=== PATIENT | female | born 1990 | race Caucasian/White ===

== ENCOUNTER 2017-11-21 14:09 | Outpatient (REF) | payer OTHER, SELFPAY ==
[2017-11-21 21:09] LABS: HCG Quant, Pregnancy 8502 mIU/mL (1-3)
== END 2017-11-21 14:29 ==
LOC: NCHCN 14:09
PROVIDERS: Visit Provider Specialist/Technologist Athletic Trainer
DX: Z31.89 Encounter for other procreative management
CPT/HCPCS: 84702

== ENCOUNTER 2017-12-26 16:04 | Outpatient (CLI) | payer OTHER, MEDICAID, SELFPAY ==
[2017-12-26 16:54] LABS: Abs Immature Grans 0.02 k/cumm (0.0-0.09); Absolute Basophil Count 0.01 k/cumm (0.0-0.2); Absolute Eosinophil Count 0.12 k/cumm (0.0-0.7); Absolute Lymphocyte Count 2.54 k/cumm (1.2-3.4); Absolute Monocyte Count 0.58 k/cumm (0.11-0.7); Absolute Neutrophil Count 7.59 k/cumm (1.2-6.7); Basophils % 0.1; Eosinophils % 1.1; HCT 37.4 % (36.0-46.0); HGB 12.6 g/dL (12.0-15.5); Immature Grans % 0.2; Lymphocytes % 23.4; Mean Corp. HGB Concentration 33.7 g/dL (32.0-36.0); Mean Corpuscular Hemoglobin 28.8 pg (27.0-33.0); Mean Corpuscular Volume 85.4 fL (80-95); Mean Platelet Volume 10.4 fL (8.0-11.0); Monocytes % 5.3; Neutrophils % 69.9; Platelet Count 244 x1000/uL (130-400); RBC 4.38 m/cumm (4.00-5.20); RBC Distribution Width 13.9 % (11.7-14.6); White Blood Cell Count 10.86 k/cumm (4.4-10.8)
[2017-12-26 17:46] LABS: TSH (W/Ref FT4) 1.21 uIU/mL (0.358-3.74)
[2017-12-26 19:25] LABS: *AMPHETAMINES SCREEN URINE Negative (Negative); *BARBITURATES SCREEN URINE Negative (Negative); *BENZODIAZEPINES SCREEN URINE Negative (Negative); Cannabinoids THC Negative (Negative); Cocaine Screen,Urine Negative (Negative); METHADONE URINE SCREEN Negative (Negative); OPIATES URINE SCREEN Negative (Negative)
[2017-12-26 19:49] LABS: Tricyclic Antidepressants Negative (Negative)
[2017-12-28 09:41] LABS: Hepatitis B Surface Ag Negative (NEGAT)
[2017-12-28 10:44] LABS: Hepatitis C Ab w Rflx HCV PCR Negative (NEGAT)
[2017-12-28 10:49] LABS: HIV-1/2 Ag & Ab Screen Negative (NEGAT)
[2017-12-28 11:56] LABS: Syphilis Serology (RPR) Negative (Negative)
[2017-12-28 12:03] LABS: Varicella IgG Antibody Positive
[2017-12-28 12:36] LABS: Rubella IgG Ab (UVM) Positive
[2017-12-28 14:13] LABS: Chlamydia Result Negative; GC Result Negative; Specimen Description CERVIX
== END 2017-12-26 16:24 ==
PROVIDERS: PCP Specialist/Technologist Athletic Trainer; Visit Provider Advanced Practice Midwife
DX: Z34.91 Encounter for supervision of normal pregnancy, unspecified, first trimester (principal); Z11.3 Encounter for screening for infections with a predominantly sexual mode of transmission; Z11.59 Encounter for screening for other viral diseases; Z01.84 Encounter for antibody response examination; Z11.4 Encounter for screening for human immunodeficiency virus [HIV]
CPT/HCPCS: 36415; 80055; 80307; 86787; 86803; 86850; 86900; 86901; 87077; 87340; 87389; 87491; 87591; 84443; 86592; 86762; 87086

== ENCOUNTER 2017-12-26 17:57 | Outpatient (REF) | payer OTHER, SELFPAY ==
--- NOTE | 2017-12-26 15:45 | PAPFT_PTH ---
PATIENT: Lauren Buenrostro LOC: [facility] U#:[id number] AGE/SX: 27/F ROOM: RE12/26/[address]: Jean-Pierre Jesus RN : 1990 BED: DIS: 12/26/2017 SPEC #: [id number] RECD: 12/26/17 18:03 STATUS: GIULIA RETabitha #: [id number] ALONSO: 12/26/17 15:[address]: Jean-Pierre Jesus DEPT: [facility] Cytology RECD BY: Shelley Sorenson ENTERED: 12/26/17 18:03 SP TYPE: PAPFT OTHR DR: Maco Santoro Tissues: 1 - CX/ENDOCX FOR PAP SMEARS Procedures: PAP THIN PREP/UVM Screening Comments: [id number]
== END 2017-12-26 18:17 ==
LOC: LBN 17:57
PROVIDERS: PCP Specialist/Technologist Athletic Trainer; Visit Provider Advanced Practice Midwife
DX: Z12.4 Encounter for screening for malignant neoplasm of cervix (principal)
CPT/HCPCS: 88142

== ENCOUNTER 2018-02-27 00:27 | Outpatient (CLI) | payer OTHER, SELFPAY ==
--- NOTE | 2018-02-27 14:18 | DI.US_ITS ---
SYMPTOM/DIAGNOSIS: 18 WEEK ANATOMY SURVEY, Z34.90 OB ULTRASOUND: Please see the ultrasound worksheet. Many abnormalities cannot be diagnosed. A normal exam does not exclude a congenital anomaly. Radiology No. [id number] LMP: Exam Date: 02/27/18 [facility] wks days on EDC ([facility]) 07/24/2018 Confirmed: HISTORY: SURVEY PREDICTED GESTATIONAL AGE NUMBER 19 weeks with a range of 18 week to 20 weeks. 1 Determined by___1STUS___LMP___HISTORY Info. pertaining to fetus # PLACENTA PRESENTATION Grade 0-I Cephalic___ Anterior___Posterior___ Breech____ Right Left Transverse(head right___ Fundal___Low-lying___Previa___ Transverse(head left___ Varying__X____ BIOMETRY AMNIOTIC FLUID BPD: 44 mm 19 +3 weeks Normal HC: 167 mm 19 +2 weeks AC: 142 mm 19 +4 weeks FL: 31 mm 19 +4 weeks AMNIOTIC FLUID INDEX >26 WK CRL: mm weeks Cisterna Magna: 3.7 mm CI: 83 RUQ: LUQ Cerebellum: 2 cm EFW: 297 grams 76% Percentile RLQ: LLQ Total: cms Composite AGE= 19 +3 wks EDC by US__07/21/2018 BIOPHYSICAL PROFILE ANATOMY IDENTIFIED SCORE 0/2 Heart: 4-Chamber_X__Rate:BPM__152___ LVOT:____X RVOT:___X Amniotic Fluid(>2cms)____ Stomach:___X____ Kidneys:___X____ Respirations (>30 secs) Bladder:____X____ Post. Fossa:___X Body Flex/Extension 3 vessel cord:__X Ventricles:__X cord insertion:__X___ Lips:_X___ Extremity Flex/Extension spinal morphology: Nose: X Total Score= Palate: NS=not seen
== END 2018-02-27 00:47 ==
PROVIDERS: PCP Specialist/Technologist Athletic Trainer; Visit Provider Advanced Practice Midwife
DX: Z34.92 Encounter for supervision of normal pregnancy, unspecified, second trimester (principal)
CPT/HCPCS: 76805

== ENCOUNTER 2018-03-27 17:14 | Outpatient (REF) | payer OTHER, SELFPAY | END 2018-03-27 17:34 | LOC: LBN 17:14 | PROVIDERS: PCP Specialist/Technologist Athletic Trainer; Visit Provider Advanced Practice Midwife | DX: Z34.92 Encounter for supervision of normal pregnancy, unspecified, second trimester (principal) | CPT/HCPCS: 87086 ==

== ENCOUNTER 2018-04-24 00:30 | Outpatient (CLI) | payer OTHER, SELFPAY ==
--- NOTE | 2018-04-24 09:48 | DI.US_ITS ---
SYMPTOMS/DIAGNOSIS: RIGHT UPPER QUADRANT PAIN/DISCOMFORT, ? GALLSTONES, CHECK APPENDIX, , R10.11 ABDOMINAL ULTRASOUND: The aorta and vena cava are normal. The liver is normal. The gallbladder is intact. There is no evidence of cholelithiasis or ductal dilatation. The pancreas is suboptimally visualized, but no gross abnormality is identified. The spleen is intact measuring 10.3 cm in maximal diameter. The right kidney measures 11.1 cm, the left kidney 9.3 cm. Mild to moderate right hydronephrosis is apparent. There is no evidence of nephrolithiasis involving either kidney. There is no evidence of an abdominal mass or free fluid. SUMMARY: Mild to moderate right hydronephrosis is demonstrated as noted above. There is no evidence of nephrolithiasis. The examination is otherwise unremarkable.
[2018-04-24 15:47] LABS: HCT 31.4 % (36.0-46.0); HGB 10.2 g/dL (12.0-15.5); Mean Corp. HGB Concentration 32.5 g/dL (32.0-36.0); Mean Corpuscular Hemoglobin 30.1 pg (27.0-33.0); Mean Corpuscular Volume 92.6 fL (80-95); Mean Platelet Volume 9.9 fL (8.0-11.0); Platelet Count 224 x1000/uL (130-400); RBC 3.39 m/cumm (4.00-5.20); White Blood Cell Count 7.22 k/cumm (4.4-10.8)
[2018-04-24 15:50] LABS: Glucose,1 Hr (Glucola) 131 mg/dL (80-140)
== END 2018-04-24 00:50 ==
PROVIDERS: PCP Specialist/Technologist Athletic Trainer; Visit Provider Advanced Practice Midwife
DX: R10.11 Right upper quadrant pain (principal); N13.30 Unspecified hydronephrosis; Z34.92 Encounter for supervision of normal pregnancy, unspecified, second trimester; Z01.84 Encounter for antibody response examination
CPT/HCPCS: 36415; 82950; 85027; 86850; 90384; 76700

== ENCOUNTER 2018-05-31 00:54 | Outpatient (CLI) | payer OTHER, MEDICAID, SELFPAY ==
--- NOTE | 2018-05-31 14:57 | DI.US_ITS ---
Many abnormalities cannot be diagnosed. A normal exam does not exclude a congenital anomaly. Radiology No. LMP: Exam Date: 05/31/18 [facility] wks days on EDC ([facility]) Confirmed: HISTORY: SIZE LESS THAN DATES, JIMMY, WT, F/U GROWTH PREDICTED GESTATIONAL AGE NUMBER 32.2 weeks with a range of 31.2 week to 33.2 weeks. 1 Determined by_X__1STUS___LMP___HISTORY Info. pertaining to fetus # PLACENTA PRESENTATION Grade II Cephalic_X__ Anterior__X_Posterior___ Breech____ Right Left Transverse(head right___ Fundal___Low-lying___Previa___ Transverse(head left___ Varying BIOMETRY AMNIOTIC FLUID BPD: 79 mm 31.4 weeks Normal HC: 291 mm 32.0 weeks AC: 288 mm 32.5 weeks FL: 65 mm 33.2 weeks AMNIOTIC FLUID INDEX >26 WK CRL: mm weeks Cisterna Magna: mm CI: 80 RUQ:_4.68 LUQ____3.21____ Cerebellum: cm EFW: 2039 grams 54th Percentile RLQ:__3.75____LLQ___2.34____ Total:___14.0 cms Composite AGE= 32.3 wks EDC by ___07/23/18 BIOPHYSICAL PROFILE ANATOMY IDENTIFIED SCORE 0/2 Heart: 4-Chamber___Rate:BPM___165__ LVOT: RVOT: Amniotic Fluid(>2cms)____ Stomach: Kidneys: Respirations (>30 secs) Bladder: Post. Fossa: Body Flex/Extension 3 vessel cord: Ventricles: cord insertion: Lips:____ Extremity Flex/Extension spinal morphology: Nose: Total Score= Palate: NS=not seen The fetus is in cephalic position. The placenta is anterior. The biometric measurements correspond to 32 weeks 3 days, consistent with previous dating. The estimated weight is 2039 grams, near the 50th percentile. The amniotic fluid index is normal at 14.0. IMPRESSION: size and weight are within normal limits.
== END 2018-05-31 01:14 ==
PROVIDERS: PCP Specialist/Technologist Athletic Trainer; Visit Provider Advanced Practice Midwife
DX: O26.843 Uterine size-date discrepancy, third trimester (principal); Z34.93 Encounter for supervision of normal pregnancy, unspecified, third trimester
CPT/HCPCS: 76816

== ENCOUNTER 2018-07-10 01:13 | Outpatient (CLI) | payer OTHER, SELFPAY ==
--- NOTE | 2018-07-10 08:30 | DI.US_ITS ---
Predicted Gestational Age: Indication/History: SIZE LESS THAN DATES 38 Wks Range: 37 to 39 Prior US done on: 05/31/18 Determined by: First US LMP History X EDC by prior US: 07/23/18 For multiple gestations: Baby PLACENTA: Grade: II Location: Anterior X Posterior PRESENTATION: RT LT LOW LYING PREVIA Cephalic X Trans (Head RT LT ) Varied Breech BIOMETRY: Anatomy Identified: BPD: 90 mm 36.2 wks 4 chamber Heart Heart Rate 123 BPM HC: 325 mm 36.5 wks LVOT Post Fossa AC: 332 mm 37.1 wks RVOT Ventricles FL: 73 mm 37.3 wks Stomach Nose Bladder Lips Cisterna Magna: mm CI: 82.6 Kidneys Palate Cerebellum: mm 3 vessel cord Spine EFW: 3101 grms 37th % Cord Insertion NS= not seen Composite Age (US) 36.6 wks Many abnormalities cannot be diagnosed. A normal exam does not exclude congenital abnormality. EDC by US 08/01/18 Amniotic Fluid Index: Normal COMMENTS: RUQ: 4.5 LUQ:4.3 RLQ: 6.1 LLQ:4.0 Total: 18.9 cm Biophysical Profile: Score 0/2 JIMMY (>2cm) Respirations (>30 sec) Body flexion/extension Extremity flexion/extension TOTAL SCORE There is a single intrauterine gestation. Estimated sonographic age is 36 weeks 6 days. heart rate is 123 beats per minute. The fetus is in the cephalic presentation. Amniotic fluid index is 18.9 cm. Visually amniotic fluid appears within normal limits. Estimated weight is 3101 grams which is the 37th percentile. The placenta is anterior without evidence of previa. IMPRESSION: Single living intrauterine gestation. Estimated sonographic age is 36 weeks 6 days.
== END 2018-07-10 01:33 ==
PROVIDERS: PCP Specialist/Technologist Athletic Trainer; Visit Provider Advanced Practice Midwife
DX: Z34.93 Encounter for supervision of normal pregnancy, unspecified, third trimester (principal); O26.843 Uterine size-date discrepancy, third trimester
CPT/HCPCS: 76816

== ENCOUNTER 2018-07-12 12:55 | Inpatient (IN) | payer OTHER, SELFPAY ==
[2018-07-12 13:25] LABS: HCT 36.4 % (36.0-46.0); HGB 12.2 g/dL (12.0-15.5); Mean Corp. HGB Concentration 33.5 g/dL (32.0-36.0); Mean Corpuscular Volume 89.7 fL (80-95); Mean Platelet Volume 11.3 fL (8.0-11.0); Platelet Count 185 x1000/uL (130-400); RBC 4.06 m/cumm (4.00-5.20); RBC Distribution Width 14.6 % (11.7-14.6); White Blood Cell Count 9.39 k/cumm (4.4-10.8)
[2018-07-12] MEDS: Penicillin G POT. 5,000,000 UNITS in Normal Saline 100 ML 200 UNITS IVPB (13:34)
[2018-07-12] MEDS: Lactated Ringers 1,000 ML 125 ML IV (13:35)
[2018-07-12] MEDS: Acetaminophen 325 MG TAB 650 MG PO ×2 (16:29→23:49)
[2018-07-12] MEDS: Ibuprofen 600 MG TAB PO ×2 (16:30→23:48)
[2018-07-12] MEDS: Hamamelis Leaf/Glycerin 100 EACH BOX PR (16:30)
[2018-07-13] MEDS: Docusate Sodium 100 MG CAP PO ×3 (03:05→21:31)
[2018-07-13] MEDS: Ibuprofen 600 MG TAB PO ×3 (05:30→21:31)
[2018-07-13 07:56] LABS: HCT 28.8 % (36.0-46.0); HGB 9.2 g/dL (12.0-15.5); Mean Corp. HGB Concentration 31.9 g/dL (32.0-36.0); Mean Corpuscular Hemoglobin 29.4 pg (27.0-33.0); Mean Platelet Volume 11.6 fL (8.0-11.0); Platelet Count 173 x1000/uL (130-400); RBC 3.13 m/cumm (4.00-5.20); RBC Distribution Width 14.7 % (11.7-14.6); White Blood Cell Count 12.07 k/cumm (4.4-10.8)
[2018-07-13] MEDS: Hamamelis Leaf/Glycerin 100 EACH BOX PR (15:07)
[2018-07-14] MEDS: Ibuprofen 600 MG TAB PO ×2 (08:52→20:00)
[2018-07-14] MEDS: Docusate Sodium 100 MG CAP PO ×2 (09:12→20:00)
[2018-07-15] MEDS: Docusate Sodium 100 MG CAP PO (08:00)
[2018-07-15] MEDS: Ibuprofen 600 MG TAB PO (08:00)
== END 2018-07-15 15:00 | disposition home or self-care (01) | DRG 807 ==
PROVIDERS: Admitting Provider Advanced Practice Midwife; PCP Specialist/Technologist Athletic Trainer; Visit Provider Advanced Practice Midwife
DX: O42.02 Full-term premature rupture of membranes, onset of labor within 24 hours of rupture (principal); Z37.0 Single live birth; Z3A.38 38 weeks gestation of pregnancy; O99.824 Streptococcus B carrier state complicating childbirth; O70.1 Second degree perineal laceration during delivery; O26.893 Other specified pregnancy related conditions, third trimester; Z67.41 Type O blood, Rh negative
CPT/HCPCS: 36415; 85027; 85461; 86850; 86900; 86901; 90384; 86870; J2540

== ENCOUNTER 2018-10-03 20:13 | Outpatient (REF) | payer OTHER, SELFPAY | END 2018-10-03 20:33 | LOC: NCHCN 20:13 | PROVIDERS: PCP Advanced Practice Midwife; Visit Provider Advanced Practice Midwife | DX: N76.0 Acute vaginitis (principal) | CPT/HCPCS: 87480; 87510; 87660 ==

== ENCOUNTER 2019-01-28 19:38 | Outpatient (CLI) | payer OTHER, SELFPAY | END 2019-01-28 19:58 | PROVIDERS: PCP Advanced Practice Midwife; Visit Provider Advanced Practice Midwife | DX: R69 Illness, unspecified (principal) ==

== ENCOUNTER 2020-01-30 01:53 | Outpatient (CLI) | payer MEDICAID, SELFPAY ==
[2020-01-30 15:28] LABS: Abs Immature Grans 0.04 10^3/uL (0.0-0.06); Absolute Basophil Count 0.02 10^3/uL (0.0-0.2); Absolute Eosinophil Count 0.09 10^3/uL (0.0-0.7); Absolute Lymphocyte Count 2.36 10^3/uL (1.2-3.4); Absolute Monocyte Count 0.41 10^3/uL (0.1-0.8); Absolute Neutrophil Count 5.98 10^3/uL (1.2-6.7); Basophils % 0.2; HCT 36.2 % (36.0-46.0); HGB 12.1 g/dL (11.2-15.7); Immature Grans % 0.4; Lymphocytes % 26.5; MCH 28.3 pg (27.0-33.0); MCHC 33.4 % (32.0-36.0); MCV 84.8 fL (80-95); MPV 9.5 fL (8.0-11.0); Monocytes % 4.6; Neutrophils % 67.3; Nucleated RBC 0 %; Platelet Count 249 10^3/uL (130-400); RBC 4.27 10^6/uL (3.93-5.22); RDW 13.7 % (11.7-14.6); RDW-SD 42.4 fL
[2020-01-30 16:54] LABS: TSH (W/Ref FT4) 0.79 uIU/mL (0.36-3.74)
[2020-02-01 13:49] LABS: Syphilis Total Ab w/Reflex Nonreactive (Nonreactive)
[2020-02-02 14:20] LABS: HIV-1/2 Ag & Ab Screen Negative (Negative)
[2020-02-12 16:47] LABS: Hepatitis B Surface Ag Negative (Negative); Hepatitis C Ab w Rflx HCV PCR Negative (Negative)
[2020-02-12 16:50] LABS: Rubella IgG Ab (UVM) Positive; Varicella IgG Antibody Positive
== END 2020-01-30 02:13 ==
PROVIDERS: Visit Provider Advanced Practice Midwife
DX: Z34.91 Encounter for supervision of normal pregnancy, unspecified, first trimester (principal); Z11.4 Encounter for screening for human immunodeficiency virus [HIV]; Z01.84 Encounter for antibody response examination
CPT/HCPCS: 36415; 86787; 86803; 86850; 86900; 86901; 87340; 87389; 84443; 85025; 86762; 86780

== ENCOUNTER 2020-01-30 22:18 | Outpatient (REF) | payer MEDICAID, SELFPAY ==
[2020-01-30 21:00] LABS: *AMPHETAMINES SCREEN URINE Negative (Negative); *BARBITURATES SCREEN URINE Negative (Negative); *BENZODIAZEPINES SCREEN URINE Negative (Negative); Cannabinoids THC Negative (Negative); Cocaine Screen,Urine Negative (Negative); METHADONE URINE SCREEN Negative (Negative); OPIATES URINE SCREEN Negative (Negative)
[2020-01-30 21:01] LABS: Tricyclic Antidepressants Negative (Negative)
[2020-02-06 09:23] LABS: Buprenorphine Negative; Norbuprenorphine Negative
[2020-02-13 12:06] LABS: Source Cervix
[2020-02-13 12:07] LABS: Chlamydia amplified RNA Negative (Negative); N gonorrhoeae amplified RNA Negative (Negative)
== END 2020-01-30 22:38 ==
LOC: LBN 22:18
PROVIDERS: Visit Provider Advanced Practice Midwife
DX: Z34.91 Encounter for supervision of normal pregnancy, unspecified, first trimester (principal)
CPT/HCPCS: 80307; 87077; 87491; 87591; 87086; 87186

== ENCOUNTER 2020-03-03 00:58 | Outpatient (CLI) | payer MEDICAID, SELFPAY ==
--- NOTE | 2020-03-03 07:30 | DI.US_ITS ---
EXAM: US OB 2-3 TRIMESTER CLINICAL HISTORY: routine pnc,Z34.90. TECHNIQUE: Transabdominal obstetrical ultrasound performed. COMPARISON: No previous for comparison. FINDINGS: Transabdominal obstetrical ultrasound performed. FINDINGS: Number of fetuses: One. position: Vertex. heart rate: 144 bpm. Placental location: Posterior. No evidence of previa. BIOMETRIC DATA: Composite Age: 18 weeks 1 day EDC: 08/03/2020 Heart Rate: 144BPM Amniotic fluid index: Amount of fluid is within normal limits. ANATOMICAL SURVEY: Within normal limits. BPD: 3.8cm HC: 15.1cm AC: 12.9cm FL: 2.8cm Cisterna Magna: 2.6 mm Cerebellum: 1.83 cm IMPRESSION: 1. Single live intrauterine gestation as above. 2. Normal anatomic survey. DATA REPOSITORY:
== END 2020-03-03 01:18 ==
PROVIDERS: Visit Provider Advanced Practice Midwife
DX: Z34.92 Encounter for supervision of normal pregnancy, unspecified, second trimester (principal)
CPT/HCPCS: 76805

== ENCOUNTER 2020-05-12 07:27 | Outpatient (CLI) | payer MEDICAID, SELFPAY ==
[2020-05-12 15:35] LABS: HCT 35.1 % (36.0-46.0); HGB 11.6 g/dL (11.2-15.7); MCH 29.4 pg (27.0-33.0); MCV 88.9 fL (80-95); MPV 10.1 fL (8.0-11.0); Platelet Count 207 10^3/uL (130-400); RBC 3.95 10^6/uL (3.93-5.22); RDW 13.4 % (11.7-14.6); RDW-SD 43.9 fL; WBC 9.86 10^3/uL (4.4-10.8)
[2020-05-12 15:43] LABS: Glucose,1 Hr (Glucola) 179 mg/dL (80-140)
== END 2020-05-12 07:28 | disposition home or self-care (01) ==
LOC: LBO 07:28
PROVIDERS: Advanced Practice Midwife; Visit Provider Advanced Practice Midwife
DX: O99.810 Abnormal glucose complicating pregnancy (principal); Z3A.28 28 weeks gestation of pregnancy; Z01.84 Encounter for antibody response examination
CPT/HCPCS: 36415; 82950; 85027; 86850; 90384

== ENCOUNTER 2020-05-19 03:52 | Outpatient (CLI) | payer MEDICAID, SELFPAY ==
[2020-05-19 10:00] LABS: Glucose 1 Hour 172 mg/dL
[2020-05-19 11:46] LABS: Glucose 3 Hour 157 mg/dL
== END 2020-05-19 03:53 | disposition home or self-care (01) ==
LOC: LBO 03:52
PROVIDERS: Visit Provider Advanced Practice Midwife
DX: O99.810 Abnormal glucose complicating pregnancy (principal); Z3A.28 28 weeks gestation of pregnancy
CPT/HCPCS: 36415; 82951

== ENCOUNTER 2020-05-24 03:58 | Outpatient (CLI) | payer MEDICAID, SELFPAY ==
--- NOTE | 2020-05-24 14:00 | NS.NUTBLAN_ITS ---
Laurenis referred for Medical Nutrition Therapy for gestational diabetes dx at 28 weeks with elevated GTT. CASA: 08/01/20. Daughter's weight wnl. Weight for current wnl. Diet recall indicates well balanced meals with emphasis on home cooked meals with mostly complex carbs, lean protein and non starchy vegetables. 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 Takes MVI and drinks 4 glasses milk daily. Current meal plan and vitamin/mineral intake meeting nutrient needs for nursing and gestation. Blood sugar log (QID) indicates fasting blood sugars of 70-80 mg/dl, post prandial levels < 140 mg/dl, GDM currently well controlled with diet. Session today reviewed increased macro and micro nutrient needs with /gestation. Also, discussed blood sugar goals and benefits of well controlled DM. Provided written materials and encouraged follow up prn. Will follow up at [facility] appts or prn.
--- NOTE | 2020-06-03 13:41 | W.DIABETESNO ---
Date of service: 06/03/20 Time of Service: 13:41 Diabetes Note NOTE: Spoke with Lauren on phone. She emailed her blood sugar logs to me from May 27-June 02 2020. Fasting sugars range from 62-78 mg/dl, 1 hour post prandial levels range from 79-152 mg/dl. Had 2 levels above 140 mg/dl PP after eating sweetened cereal. Provided feed back on glycemic variability and answered questions on Dm diet prrinciples for optimal glycemic control. Overall, GDM well controlled by diet at this time. Encouraged daily exercise and balanced eating, along with continued tracking of fasting and post prandial blood sugars. Follow up prn. Time Spent in Nutritional Counseling and Treatment: 20
== END 2020-05-24 03:59 | disposition home or self-care (01) ==
LOC: DS 03:58
PROVIDERS: Visit Provider Dietitian, Registered
DX: O24.410 Gestational diabetes mellitus in pregnancy, diet controlled (principal); Z3A.28 28 weeks gestation of pregnancy; Z71.3 Dietary counseling and surveillance
CPT/HCPCS: 97802

== ENCOUNTER 2020-07-07 16:21 | Outpatient (REF) | payer MEDICAID, SELFPAY ==
[2020-07-07 17:16] LABS: *AMPHETAMINES SCREEN URINE Negative (Negative); *BARBITURATES SCREEN URINE Negative (Negative); *BENZODIAZEPINES SCREEN URINE Negative (Negative); Cannabinoids THC Negative (Negative); Cocaine Screen,Urine Negative (Negative); METHADONE URINE SCREEN Negative (Negative); OPIATES URINE SCREEN Negative (Negative)
[2020-07-07 17:17] LABS: Tricyclic Antidepressants Negative (Negative)
[2020-07-14 09:58] LABS: Buprenorphine Negative ng/mL (Cutoff: 5.0)
== END 2020-07-07 16:22 | disposition home or self-care (01) ==
LOC: LBN 16:21
PROVIDERS: Visit Provider Advanced Practice Midwife
DX: Z34.93 Encounter for supervision of normal pregnancy, unspecified, third trimester (principal); Z36.85 Encounter for antenatal screening for Streptococcus B; Z3A.36 36 weeks gestation of pregnancy
CPT/HCPCS: 80307; 87081

== ENCOUNTER 2020-07-09 03:53 | Outpatient (CLI) | payer MEDICAID, SELFPAY ==
--- NOTE | 2020-07-09 06:45 | DI.US_ITS ---
Exam(s) US OB JIMMY WEIGHT EXAM: US OB JIMMY WEIGHT CLINICAL HISTORY: EFW/JIMMY,GEST DIABETES,O24.419. TECHNIQUE: Transabdominal obstetrical ultrasound performed. COMPARISON: US US OB 2-3 TRIMESTER from 03/03/2020 FINDINGS: Transabdominal obstetrical ultrasound performed. FINDINGS: Number of fetuses: One. position: Cephalic. Placental location: Posterior and fundal. No evidence of previa. BIOMETRIC DATA: BPD: 83 mm = 33 weeks 2 days HC: 319 mm = 35 weeks 6 days AC: 323 mm = 36 weeks 1 day FL: 71 mm = 36 weeks 3 days EFW: 2802 grms 33% Composite Age: 35 weeks 3 days EDC: 08/10/2020 Heart Rate: 153BPM Amniotic fluid index: 14.8 cm. Visually, amount of fluid is within normal limits. IMPRESSION: 1. Single live intrauterine gestation as above. 2. Estimated weight is 2802gms. 3. Amniotic fluid index is 14.8 cm. Visually within normal limits. DATA REPOSITORY:
== END 2020-07-09 04:13 ==
PROVIDERS: Visit Provider Advanced Practice Midwife
DX: O24.410 Gestational diabetes mellitus in pregnancy, diet controlled (principal); Z3A.35 35 weeks gestation of pregnancy
CPT/HCPCS: 76816

== ENCOUNTER 2020-07-21 10:57 | Outpatient (CLI) | payer MEDICAID, SELFPAY ==
[2020-07-21 11:46] VITALS: BP 116/73; PULSE 94; TEMP 36.8
[2020-07-21 11:54] VITALS: BP 116/73; PULSE 94
--- NOTE | 2020-07-21 13:46 | W.OBNST ---
Date of service: 07/21/20 Time of Service: 13:47 NST Evaluation Reason for NST Reasons for Nonstress Test: OTHER, SEE COMMENT Reason for NST Other: rule out labor Gestational Age Gestational Age in Weeks and Days: 38 Weeks and 3Days Test and Monitor Explained Test/Monitor Explained: Test Explained, Monitor Explained and Patient Verbalized Understanding Vital Signs Blood Pressure: 116/73 Pulse: 94 Temperature: 98.2 F Urine Results Urine Protein: Negative Urine Ketones: Positive Urine Glucose: Negative Urine Blood: Negative NST Information Time on Monitor: 11:52 Date off Monitor: 07/21/20 Time off Monitor: 12:48 NST Interventions: None NST Evaluation Patient States Movement: Present Variability: Moderate 6-25 bpm Accelerations: 15x15 Note NST Note Note: cervix 1/30% posterior, vtx -3, sent home after clearing ketonuria with PO apple juice NST Reviewed and Verified by: Cathy Spence
[2020-07-21 13:48] VITALS: BP 116/73; PULSE 94; TEMP 36.8
== END 2020-07-21 14:00 | disposition home or self-care (01) ==
LOC: BCD 10:58 → OBS 11:14
PROVIDERS: Referring Provider Advanced Practice Midwife; Visit Provider Advanced Practice Midwife
DX: O47.1 False labor at or after 37 completed weeks of gestation (principal); Z3A.38 38 weeks gestation of pregnancy
CPT/HCPCS: 59025

== ENCOUNTER 2020-07-29 09:01 | Inpatient (IN) | payer MEDICAID, SELFPAY ==
[2020-07-29] VITALS (15 sets, daily range): BP systolic 104–127; BP diastolic 56–83; PULSE 81–111; RESP 16–18; TEMP 36.4–36.7; O2SAT 94–99
--- NOTE | 2020-07-29 09:02 | HPE_ITS ---
Date of service: 07/29/20 Time of Service: 09:03 Assessment and Plan Assessment and plan (1) Active labor at term: Start date: 07/29/20 Start time: 09:15 Status: Acute Assessment and plan: admit and expect NVD.KH (2) Gestational diabetes mellitus (GDM) affecting , antepartum: Start date: 07/29/20 Start time: 09:15 Status: Acute Assessment and plan: diet controlled diabetic, no BG's needed in labor.KH (3) Rh negative state in antepartum period: Start date: 07/29/20 Start time: 09:15 Status: Acute Assessment and plan: will obtain cord blood at delivery to determine baby type and Rh.KH OB-HPI Labor/Delivery History of Present Illness Reason for Visit: contractions Chief Complaint: Uterine Contractions. CASA Calculator Estimated Delivery Date Method Current WG Current Estimate 08/01/20 LMP (Certain) 39w 4d Other Estimates 08/03/20 Ultrasound #1 39w 2d History of Present Expected Delivery Route/Plan - NISH FOB/ - [place] Buenrostro BB carey [place] GDM diet well-controlled, discuss IOL if goes postdates GBS negative Would like to use the tub for labor. Would like to avoid medication. May need to leave the hospital early as she is nursing her daughter. Specific Issues/Plan 1. PA not required for CF/SMA and [place] screening 01/30/20 Declines optional labs, declination signed. 2. At 14 wks: +e.coli e-rx nitrofurantoin pt notified.al 3. Continues to breastfeed her 18 month old through 3a. chronic nipple pain for 1 month, will try topical anti-fungal BID 4. Glucola at 28 wks 179; 4a. At 29 wks: 3 hr GTT=2 elevations (2nd & 3rd), GDM diagnosed, begin QID home monitoring, DM referral sent 5. [employer] 6. Lauren and her partner undecided about covid vaccine. Assessment: History Reviewed & Current Review of Systems All systems reviewed & are unremarkable except as noted in HPI and below [facility] Medical History Acid reflux Amenorrhea Carpal tunnel syndrome of right wrist Elevated glucose level Gestational diabetes mellitus (GDM) affecting first Headache Positive test Rectal fissure 12 weeks post Right carpal tunnel syndrome (08/18/15) surgery 2016 Sciatica Skin lesion Dry skin Spasm of muscle Spotting Tenosynovitis of wrist (08/18/15) Vaginitis Surgical History H/O wisdom tooth extraction Hx of carpal tunnel repair Family History Father Diabetes Brother Anxiety Other Asthma Bipolar disorder Social History Smoking/Tobacco Use Status: Never Smoking risk assessment performed?: Yes Alcohol Intake: never Drug use: Never Substance use type: does not use Household members: spouse and children Housing: house current occupation: Stay at home mom Sexually active: Yes Do you think of yourself as: straight/heterosexual Current gender identity: female Female Reproductive History Menstrual Age of Menarche: 14 control method: none History History 2 Para 1 Hx # Term Pregnancies 1 Multiple births 0 Hx # Pregnancies 0 Ectopic pregnancies 0 AB induced 0 Hx Number of Living Children 1 AB spontaneous 0 Past Pregnancies Del. Date GA/Weeks # Outcome Route Wgt Sex Labor Lgth Anesthes ia Location Prov Complic 07/12/18 38 No Successful vaginal 6 lb 12 oz Female 6 hrs Jean-Pierre Capps CNM Delivery Date: 07/12/18 Stage 3 7 min.; 2nd degree perineal laceration repaired. Sarah Cates Meds Allergies and Home Medications Allergies Allergy/AdvReac Type Severity Reaction Status Date / Time No Known Allergies Allergy Verified 07/29/20 09:08 Home Medications Medication Instructions Recorded Confirmed Type multivitamin 1 tab PO DAILY 07/29/18 06/09/20 History butenafine 1 % topical cream 1 applic TOPICAL BID 7 Days #30 g 03/03/20 06/09/20 Rx blood sugar diagnostic #100 ea 05/19/20 06/09/20 Rx blood-glucose meter #1 ea 05/19/20 06/09/20 Rx lancets 28 gauge #100 ea 05/19/20 06/09/20 Rx Exam Constitutional Constitutional: mild distress Detailed Labor and Delivery Exam Dilation: 4 Effacement (%): 70 station: -2 Cervix position: posterior Consistency: soft Luna Score: Cervical Points Exam 0 1 2 3 Dilation Closed 1-2cm 3-4 cm 5-6cm Effacement 0-30% 40-50% 60-70% 80% Consistency Firm Medium Soft Station -3 -2 -1,0 +1,+2 Position Posterior Mid Anterior LUNA Score(Cervical Ripeness Score): 7 Amniotic Membrane Status: Intact Contraction Frequency(min): 3-5 [id number] Contraction Intensity: Moderate/Strong Fetus A Heart Rate Baseline: 130 Monitor Accelerations: 15 X 15 Monitor Decelerations: None Variability: Moderate (6-25 BPM) Presentation: Cephalic Categories: Category I Est. Weight: 7 lb HEENT Exam HEENT Exam: Normal Neck Exam Neck Exam: Normal Chest/Brest/Axilla Exam Chest Exam: Normal Breast Exam Breast Exam: Normal Respiratory Exam Respiratory Exam: Normal Cardiovascular Exam Cardiovascular Exam: Normal Abdominal Exam Abdominal Exam: Normal (size equals dates, fundus is non tender, contractions moderate-strong) Rectal Exam Rectal Exam: Not Done Exam Exam: Normal Extremities Exam Extremities Exam: Normal Back/Spine/Pelvis Exam Back Exam: Not Done Skin Exam Skin Exam: Not Done Neurological Exam Neurological Exam: Normal Psychiatric Exam Psychiatric Exam: Normal Risk Assessment Risk for Shoulder Dystocia Historical/Initial OB: NEGATIVE FOR: Pelvic Abnormality, Pre- BMI>30, Previous Shoulder Dystocia or Previous Macrosomia 40 Weeks: NEGATIVE FOR: EFW> 4500 gms, Maternal Weight Gain >40lb or Post Dates Increased Risk?: No Counselin01/30/20 @ iob al Delivery Plan @ 36wks: spont labor, Delivery Plan @ 40 wks: 07/29/20 Risk for Pre-Eclampsia Daily Dose ASA Indicated: No Date Initiated/Initials: 01/30/20 al Yes, if one or more: POSTIVE FOR: APA Syndrome; NEGATIVE FOR: Hx Pre-E/Gest HTN, Chronic HTN, Multiple Gestation, Pre- gestational DM, Renal Disease or Systemic Lupus Yes, if 2 or more: NEGATIVE FOR: Nulliparity, Age>= 35 yrs, >10yr btwn pregnancies, BMI>30, ethinicty, Mother/Sister w/ Pre-E or Previous IUGR Risk for Post- Hemorrhage Initial: NEGATIVE FOR: Multiple Gestation, Previous PPH, Known Clotting Deficiency, Grand Multiparity or Anticoagulation At Risk?: No Counseled re: Active Management: Yes Risks Reviewed Risks Reviewed Upon Admission: Yes
[2020-07-29 09:33] LABS: HGB 12.1 g/dL (11.2-15.7); MCH 29.2 pg (27.0-33.0); MCHC 32.7 % (32.0-36.0); MCV 89.4 fL (80-95); MPV 11.1 fL (8.0-11.0); Platelet Count 174 10^3/uL (130-400); RBC 4.14 10^6/uL (3.93-5.22); RDW 14.6 % (11.7-14.6); WBC 8.22 10^3/uL (4.4-10.8)
[2020-07-29 10:49] LABS: Source Nasal/Nares
[2020-07-29 11:31] LABS: COVID-19 PCR Negative (Negative)
--- NOTE | 2020-07-29 12:38 | W.PM.OBNL1 ---
Date of service: 07/29/20 Time of Service: 12:38 Pelvic Exam Dilation: 5.5 Effacement (%): 80 station: -2 Cervix Position: posterior Consistency: soft Contractions Monitor Mode: Palpation Contraction Frequency(min): 2-4 Contraction Duration(sec): 60 Intensity: Moderate/Strong Fetus A Monitor: Doppler Heart Rate Baseline: 130 Presentation: Cephalic Assessment and Plan Assessment and plan (1) Active labor at term: Start date: 07/29/20 Start time: 12:30 Status: Acute Assessment and plan: will encourage relaxation techniques while in tub. KH Objective Abnormal lab results 07/29/20 Range/Units 09: MPV 11.1 H (8.0-11.0) fL Temp Pulse Resp BP Pulse Ox 97.7 F 85 16 107/65 99 07/29/20 12:23 07/29/20 12:23 07/29/20 09:44 07/29/20 12:23 07/29/20 09:44 Laboratory Results WBC 8.22 10^3/uL (4.4-10.8) 07/29/20 09:22 RBC 4.14 10^6/uL (3.93-5.22) 07/29/20 09:22 Hgb 12.1 g/dL (11.2-15.7) 07/29/20 09:22 Hct 37.0 % (36.0-46.0) 07/29/20 09:22 MCV 89.4 fL (80-95) 07/29/20 09: MCH 29.2 pg (27.0-33.0) 07/29/20 09: MCHC 32.7 % (32.0-36.0) 07/29/20 09:22 RDW 14.6 % (11.7-14.6) 07/29/20 09:22 Plt Count 174 10^3/uL (130-400) 07/29/20 09:22 MPV 11.1 fL (8.0-11.0) H 07/29/20 09:22 COVID-19 Source Nasal/nares 07/29/20 10:45 SARS-CoV-2 (PCR) Negative (Negative) 07/29/20 10:45 Patient ABO/Rh O Negative 07/29/20 09:22 Antibody Screen Positive 07/29/20 09:22 Antibody Identification Anti-D 07/29/20 09:22 Subjective Interval history since last seen: requesting to use tub for pain management. States contractions are getting much stronger.KH Results Hemoglobin/Hematocrit: Hgb 12.1 g/dL (11.2-15.7) 07/29/20 09:22 Hct 37.0 % (36.0-46.0) 07/29/20 09:22 Abnormal Lab Findings: Abnormal Labs 07/29/20 09: MPV 11.1 H
[2020-07-29] MEDS: Lidocaine 1% Multi-Dose 20 ML VIAL (14:25)
--- NOTE | 2020-07-29 15:25 | OBVDS_ITS ---
Date of service: 07/29/20 Time of Service: 15:25 OB Labor/ Delivery Information Baby A Delivery Delivery Method: Spontaneaous Presentation: Cephalic Cephalic Position: Vertex Vertex Position: Right Occipital Anterior Cord Description-Baby A: 3 Vessels Amniotic Fluid: Clear Estimated Blood Loss: 200 ( difficult to assess due to being in tub ) Delivery Outcome: Liveborn Transferred: Remains with Mother Note: Lauren presents for labor and progressed over a few hours to 10 cm while in birthing tub. She had used nitrous with good effect and began to feel involuntary pushing effort. Baby was born BRADLEY over 2nd degree perineal lacerat ion at 1417. Baby was delivered up to Mother's chest with spontaneous cry and of 8 at 1 minute 9 at 5 minutes respectively. Cord double clamped and cut by FOB after pulsations stopped. 3 vessel cord noted. Placenta delivers quickly at 1422 intact with maternal expulsive efforts. Fundus firms to U-1 and approximately 200cc EBL noted although difficult to completely assess due to blood also mixed in tub water. Mother and baby are transferred to bed. Laceration is repaired under 1% lidocaine with 3.0 Vicryl suture with 2 interrupted stitches. Sponge, needle and instrument count are correct. Mother and baby are in satisfactory condition and will remain skin to skin for the olivas hour prior to weight being obtained. Cord blood obtained and placenta will not need pathology study.Baby's weight 6lb 10 oz. Providers Nurse Software Engineer Web Services: Sarah Sampson Nurse: Barbara Saldivar Nurse: Robert Vazquez Labor/Delivery Information Number of Babies in Womb: 1 Steroids Given: None Reason Steroids Not Administered: N/A Group Beta Strep: Negative Antibiotics Administered: No Rubella Status: Immune Blood Type: O- Varicella Immunity: Immune Medication in Delivery: nitrous oxide Maternal Complications: None Shoulder Dystocia: No Stages of Labor Onset of Labor Date: 07/29/20 Onset of Labor Time: 05:00 Complete Dilatation Date: 07/29/20 Complete Dilatation Time: 14:17 Labor - Stage 1 Duration: 0 minutes ROM Baby A: 07/29/20 ROM Baby A: 14:17 ROM Total Time- Baby A: [id number] Delivery Date-Baby A: 07/29/20 Infant Delivery Time-Baby A: 14:17 Labor Stage 2 Duration: 0 minutes Placenta Delivery Date-Baby A: 05/20/21 Placenta Delivery Time-Baby A: 14:22 Labor-Stage 3 Duration: 5 minutes Total Length of Labor-Baby A: 9 hours and 17 minutes Placenta Cultured: No Placenta Status: Delivered Baby A Infant Gender: Male Gestational Status: Term (39-41.6 wks) Gestational Age in Weeks/Days: 39 Weeks and 4 Days Score-1 Minute Interval(Baby A) Heart Rate-1 minute: 100 BPM or Greater Respiratory Effort- 1 minute: Spontaneous/Strong Cry Muscle Tone-1 minute: Active Movement Reflex Response-1 minute: Prompt Response Color-1 minute: Pallor or Cyanosis Total Score-1 minute: 8 Score-5 Minute Interval(Baby A) Heart Rate- 5 minute: 100 BPM or Greater Respiratory Effort-5 minute: Spontaneous/Strong Cry Muscle Tone-5 minute: Active Movement Reflex Response-5 minute: Prompt Response Color-5 minute: Bluish Hands or Feet Total Score- 5 minute: 9
[2020-07-29] MEDS: Ibuprofen 600 MG TAB PO ×3 (15:44→21:40)
[2020-07-29] MEDS: Acetaminophen 325 MG TAB 650 MG PO ×2 (15:44→19:20)
[2020-07-30] MEDS: Acetaminophen 325 MG TAB 650 MG PO ×3 (00:07→12:57)
[2020-07-30] MEDS: Ibuprofen 600 MG TAB PO ×3 (03:45→15:37)
[2020-07-30 07:53] VITALS: BP 109/73; PULSE 90; RESP 16; TEMP 36.6; O2SAT 98
--- NOTE | 2020-07-30 09:33 | W.PM.OBPNV1 ---
Date of service: 07/30/20 Time of Service: 09:15 Assessment and Plan Assessment and plan (1) care following vaginal delivery: Start date: 07/30/20 Start time: 09:15 Status: Acute Assessment and plan: plan discharge later today, will make PP appointment prior to discharge. Is aware that toddler may not accompany her to PP appointments but baby may if needed.AYE (2) Lactating mother: Status: Acute Assessment and plan: continue present management. Will meet with LC prior to discharge AYE Subjective Subjective Interval history: Planning discharge later today. Will be using NFP for contraception. Will call office to make 2 and 6 week PP visits.Is requesting colace and ibuprofen as prescriptions at time of discharge.AYE Patient comments: No complaints, Pain well controlled, Tolerating diet and Bowel Movement Patient's Mood: happy and content [place] baby status: Doing well, Nursing well and Rooming in [place] feeding status: Exclusively breast feeding Exam Physical Exam Vital signs: Temp Pulse Resp BP Pulse Ox 97.9 F 90 16 109/73 98 07/30/20 07:53 07/30/20 07:53 07/30/20 07:53 07/30/20 07:53 07/30/20 07:53 Vital Signs Reviewed: Yes Constitutional Constitutional: no acute distress, average body habitus and cooperative HEENT Exam HEENT Exam: Normal Neck Exam Neck Exam: Not Done Respiratory Exam Respiratory Exam: Normal Cardiovascular Exam Cardiovascular Exam: Normal Abdominal Exam Abdomen: Diastasis Fundal Exam Fundus: Below Umbilicus and Firm Rectal Exam Rectal Exam: Not Done Exam Patient deferred: external exam and perineal exam Perineum: Normal and Repair Intact Extremities Exam Extremity Exam: Normal Back/Spine/Pelvis Exam Back Exam: Not Done Skin Exam Skin Exam: Normal Neurological Exam Neurological Exam: Normal Psychiatric Exam Psychiatric Exam: Normal Results Hemoglobin/Hematocrit: Hgb 12.1 g/dL (11.2-15.7) 07/29/20 09:22 Hct 37.0 % (36.0-46.0) 07/29/20 09:22 Abnormal Lab Findings: Abnormal Labs 07/29/20 09:22 MPV 11.1 H
--- NOTE | 2020-07-30 12:10 | DSE_ITS ---
Date of service: 07/30/20 Time of Service: 12:10 DS: Diagnosis Discharge Diagnosis (1) care following vaginal delivery: Start date: 07/30/20 Start time: 12:11 Status: Acute Asessment and Plan: has had normal PP course since NVD (waterbirth) 07/29/20 (2) Lactating mother: Start date: 07/30/20 Start time: 12:11 Status: Acute Asessment and Plan: experienced breast feeding mom still tandem nursing toddler as well. Discharge Plan Disposition Patient Disposition: HOME Condition: Good Discharge Details Reason For Visit: labor at term Admit Date/Time: 07/29/20 09:01 Admit Provider: Cathy Spence Attending Provider: Cathy Spence Primary Care Provider: None,Abdiel Hospital Course Hospital Course: Normal labor and with normal PP course. Home Meds and New Rx's Prescriptions: Continued multivitamin tablet 1 tab PO DAILY RF: 0 butenafine [Lotrimin Ultra] 1 % cream 1 applic topical BID 7 Days Qty: 30 RF: 1 (DME) FreeStyle Lite Strips Strip See Rx Instructions .ROUTE .MEDSUPPLY Qty: 100 RF: 4 (DME) blood-glucose meter [FreeStyle Lite Meter] Kit See Rx Instructions .ROUTE .MEDSUPPLY Qty: 1 RF: 0 (DME) lancets [FreeStyle Lancets] 28 gauge misc See Rx Instructions .ROUTE .MEDSUPPLY Qty: 100 RF: 4 Discharge Instructions Activity:: Activity as Tolerated Equipment/Supplies:: No Equipment Needed Diet:: As Tolerated Discharge Orders Discharge Orders: Discharge Order (Routine); Ordered 07/30/20 Ordered By: Sarah Sampson OB:DS Summary Summary Vaginal Delivery Method: Spontaneaous Episiotomy Description: None Laceration Description: Perineal Laceration Extension: Second Degree Contraception Discussed Contraception Discussed: Yes, [place] Infant Gender-Baby A: Male weight: 6 lb 9.998 oz Status at Discharge Functional status at discharge: independent ambulation Overall status at discharge: patient is back to baseline Mental Status: mental status grossly normal Speech and Movement: speech and movement normal Mood: congruent mood Affect: normal affect Exam Physical Exam Vital signs: Temp Pulse Resp BP Pulse Ox 97.9 F 90 16 109/73 98 07/30/20 07:53 07/30/20 07:53 07/30/20 07:53 07/30/20 07:53 07/30/20 07:53 Vital Signs Reviewed: Yes Constitutional Constitutional: no acute distress, average body habitus and cooperative HEENT Exam HEENT Exam: Normal Neck Exam Neck Exam: Not Done Respiratory Exam Respiratory Exam: Normal Cardiovascular Exam Cardiovascular Exam: Normal Fundal Exam Fundus: Below Umbilicus and Firm Rectal Exam Rectal Exam: Not Done Exam Patient deferred: external exam and perineal exam Perineum: Normal and Repair Intact Extremities Exam Extremity Exam: Normal Back/Spine/Pelvis Exam Back Exam: Not Done Skin Exam Skin Exam: Normal Neurological Exam Neurological Exam: Normal Psychiatric Exam Psychiatric Exam: Normal [facility] Medical History Acid reflux Amenorrhea Carpal tunnel syndrome of right wrist Elevated glucose level Gestational diabetes mellitus (GDM) affecting first Headache Positive test Rectal fissure 12 weeks post Right carpal tunnel syndrome (08/18/15) surgery 2016 Sciatica Skin lesion Dry skin Spasm of muscle Spotting Tenosynovitis of wrist (08/18/15) Vaginitis Surgical History H/O wisdom tooth extraction Hx of carpal tunnel repair Family History Father Diabetes Brother Anxiety Other Asthma Bipolar disorder Social History Smoking/Tobacco Use Status: Never Smoking risk assessment performed?: Yes Alcohol Intake: never Drug use: Never Substance use type: does not use Household members: spouse and children Housing: house current occupation: Stay at home mom Sexually active: Yes Do you think of yourself as: straight/heterosexual Current gender identity: female Female Reproductive History Menstrual Age of Menarche: 14 control method: none History History 2 Para 1 Hx # Term Pregnancies 1 Multiple births 0 Hx # Pregnancies 0 Ectopic pregnancies 0 AB induced 0 Hx Number of Living Children 1 AB spontaneous 0 Past Pregnancies Del. Date GA/Weeks # Outcome Route Wgt Sex Labor Lgth Anesthes ia Location Prov Complic 07/12/18 38 No Successful vaginal 6 lb 12 oz Female 6 hrs Jean-Pierre Capps CNM Delivery Date: 07/12/18 Stage 3 7 min.; 2nd degree perineal laceration repaired. Sarah Cates DS: Data Vitals/I&O Vitals and I&O: Vital Signs Temperature 97.9 F 07/30/20 07:53 Pulse 90 07/30/20 07:53 Pulse Rhythm Regular 07/30/20 07:30 Respiratory Rate 16 07/30/20 07:53 Blood Pressure 109/73 07/30/20 07:53 Blood Pressure Mean 85 07/30/20 07:53 Pulse Oximetry 98 07/30/20 07:53 Pain Level 4 07/30/20 03:45 Intake & Output 07/29/20 07/30/20 07/30/20 23:59 11:59 23:59 Intake Total 550 / 550 Output Total 3500 / 4275 Balance -2950 / -3725 Intake: Oral 550 / 550 Output: Urine 3500 / 4275 Other: Urine Color Yellow Yellow Data Completed and Pending Labs on day of discharge: Labs from last 24 hours 07/30/20 07/29/20 08:08 09:22 Patient ABO/Rh O Negative Antibody Screen Positive Antibody Identification Anti-D Screen Pending Unit Expiration Date 11/07/2021 Product Lot # [id number]
[2020-07-30] MEDS: Docusate Sodium 100 MG CAP PO (12:57)
== END 2020-07-30 16:50 | disposition home or self-care (01) | DRG 806 ==
PROVIDERS: Advanced Practice Midwife; Admitting Provider Advanced Practice Midwife; Visit Provider Advanced Practice Midwife
DX: O24.410 Gestational diabetes mellitus in pregnancy, diet controlled (principal); O36.0930 Maternal care for other rhesus isoimmunization, third trimester, not applicable or unspecified; Z37.0 Single live birth; Z3A.39 39 weeks gestation of pregnancy; O70.1 Second degree perineal laceration during delivery; O99.62 Diseases of the digestive system complicating childbirth; K21.9 Gastro-esophageal reflux disease without esophagitis
CPT/HCPCS: 36415; 85027; 85461; 86850; 86900; 86901; 87635; 90384; 86870; J2790; J3490

== ENCOUNTER 2020-09-07 03:12 | Outpatient (CLI) | payer MEDICAID, SELFPAY ==
[2020-09-07 09:59] LABS: GTT Comment See Comments
== END 2020-09-07 03:13 | disposition home or self-care (01) ==
LOC: LBO 03:12
PROVIDERS: Visit Provider Advanced Practice Midwife
DX: Z86.32 Personal history of gestational diabetes (principal)
CPT/HCPCS: 36415; 82951

== ENCOUNTER 2022-02-24 01:02 | Outpatient (CLI) | payer MEDICAID, SELFPAY ==
[2022-02-24 12:21] LABS: Panorama Kit Sent via Fed Ex
[2022-02-24 12:32] LABS: Abs Immature Grans 0.03 10^3/uL (0.0-0.06); Absolute Basophil Count 0.01 10^3/uL (0.0-0.2); Absolute Eosinophil Count 0.08 10^3/uL (0.0-0.7); Absolute Lymphocyte Count 1.84 10^3/uL (1.2-3.4); Absolute Monocyte Count 0.45 10^3/uL (0.1-0.8); Absolute Neutrophil Count 6.37 10^3/uL (1.2-6.7); Basophils % 0.1; Eosinophils % 0.9; HCT 36.7 % (36.0-46.0); HGB 12.3 g/dL (11.2-15.7); Immature Grans % 0.3; MCH 28.8 pg (27.0-33.0); MCHC 33.5 % (32.0-36.0); MCV 86 fL (80-95); MPV 10.2 fL (8.0-11.0); Monocytes % 5.1; Neutrophils % 72.6; Platelet Count 253 10^3/uL (130-400); RBC 4.27 10^6/uL (3.93-5.22); RDW 13.4 % (11.7-14.6); RDW-SD 42.1 fL; WBC 8.78 10^3/uL (4.4-10.8)
[2022-02-24 12:45] LABS: Glucose,1 Hr (Glucola) 115 mg/dL (80-140)
[2022-02-25 13:38] LABS: HIV-1/2 Ag & Ab Screen Negative (Negative)
[2022-02-27 09:23] LABS: Hepatitis B Surface Ag Negative (Negative)
[2022-02-27 10:16] LABS: Hepatitis C Ab w Rflx HCV PCR Negative (Negative)
[2022-02-27 11:11] LABS: Rubella IgG Ab (UVM) Positive (See Note); Varicella IgG Antibody Positive (See Note)
[2022-02-27 13:49] LABS: Syphilis IgG w/Reflex Nonreactive (Nonreactive)
== END 2022-02-24 01:03 | disposition home or self-care (01) ==
LOC: LBO 01:02
PROVIDERS: PCP Internal Medicine; Visit Provider Advanced Practice Midwife
DX: Z34.91 Encounter for supervision of normal pregnancy, unspecified, first trimester (principal); Z3A.12 12 weeks gestation of pregnancy
CPT/HCPCS: 36415; 82950; 86787; 86803; 86850; 86900; 86901; 87340; 87389; 85025; 86762; 86780

== ENCOUNTER 2022-02-24 12:53 | Outpatient (REF) | payer MEDICAID, SELFPAY ==
--- NOTE | 2022-02-24 10:50 | PAPFT_PTH ---
PATIENT: Lauren Buenrostro LOC: [facility] U#:[id number] AGE/SX: 31/F ROOM: RE02/24/[address]: Sarah Sampson CNM : 1990 BED: DIS: 02/24/2022 SPEC #: [id number] RECD: 02/24/22 13:12 STATUS: GIULIA REQ #: [id number] ALONSO: 02/24/22 10:[address]: Sarah Sampson DEPT: [facility] Cytology RECD BY: Shelley Sorenson ENTERED: 02/24/22 13:13 SP TYPE: PAPFT OTHR DR: Inessa Isbell MD Tissues: 1 - CX/ENDOCX FOR PAP SMEARS Procedures: PAP THIN PREP/UVM Screening Comments: [id number] (CHLAMYDIA/GC)
[2022-02-27 13:38] LABS: Chlamydia Result Negative (Negative); GC Result Negative (Negative)
== END 2022-02-24 12:54 | disposition home or self-care (01) ==
LOC: LBN 12:53
PROVIDERS: PCP Internal Medicine; Visit Provider Advanced Practice Midwife
DX: Z11.3 Encounter for screening for infections with a predominantly sexual mode of transmission (principal); Z12.4 Encounter for screening for malignant neoplasm of cervix; Z34.91 Encounter for supervision of normal pregnancy, unspecified, first trimester; Z3A.14 14 weeks gestation of pregnancy
CPT/HCPCS: 87491; 87591; 88142

== ENCOUNTER 2022-02-28 09:33 | Emergency (ER) | payer MEDICAID, SELFPAY ==
[2022-02-28 09:41] VITALS: BP 116/62; PULSE 123; RESP 16; TEMP 36.9; O2SAT 99
--- NOTE | 2022-02-28 10:11 | ED.GENADUL_ITS ---
Discharge Plan Disposition Patient Disposition: Home Condition: Stable Discharge Details Clinical Impression: Influenza A Primary Care Provider: Inessa Isbell ED Provider: Shelley Krishnan Home Meds and New Rx's Prescriptions: New oseltamivir [Tamiflu] 75 mg capsule 75 mg PO BID 5 Days Qty: 10 0RF metoclopramide HCl [Reglan] 10 mg tablet 10 mg PO Q6H PRNQty: 10 0RF Continued multivitamin tablet 1 tab PO DAILY acetaminophen 500 mg Capsule 1,000 mg PO PRN PRN Discharge Instructions Instructions: H1N1 Influenza (ED) Additional Instructions: Take Tamiflu as prescribed Hydration Take Reglan as needed for nausea and vomiting in addition to headache Tylenol 650 mg every 4 hours as needed for symptoms Return earlier should you have Worsening complaints including shortness of breath, vaginal bleeding, abdominal pain, uncontrolled nausea vomiting Referrals: Inessa Isbell MD [Primary Care Provider] - Discharge Data Discharge Date/Time-TO BE ENTERED AT DEPARTURE: 02/28/22 10:35 Medical Decision Making This 31-year-old female presents with report syndrome which started last evening Patient appears well, no abdominal tenderness or vaginal bleeding Patient is presenting with flulike illness, has been a slightly positive Secondary to and likely influenza diagnosis, she was started on Tamiflu after reviewing risks and benefits Encouraged to increase fluids Will take Tylenol as needed for fever and chills Return precautions reviewed and patient expressed understanding Medical Records Medical records reviewed: Yes I reviewed the patient's medical records. Lab Data Lab results reviewed: Yes I reviewed the patient's lab results. HPI General Date/Time Provider Initiated Documentation: 02/28/22 09:55 . HPI Narrative: This 31-year-old female presents with upper respiratory symptoms, headache, myalgias. Patient states that she started this morning having myalgias and subjective fever. tested positive for flu yesterday. She is 12 weeks denies any abdominal pain or urinary symptoms. She had an uneventful thus far. She had an ultrasound on Sunday that showed a healthy fetus. Denies chest pain or shortness of breath. Related Data Home Medications Medication Instructions Recorded Confirmed multivitamin 1 tab PO DAILY 07/29/18 02/28/22 acetaminophen 500 mg capsule 1,000 mg PO PRN PRN 02/28/22 02/28/22 metoclopramide HCl 10 mg tablet 10 mg PO Q6H PRN #10 tabs 02/28/22 (Reglan) oseltamivir 75 mg capsule (Tamiflu) 75 mg PO BID 5 days #10 caps 02/28/22 Previous Rx's Medication Instructions Recorded metoclopramide HCl 10 mg tablet 10 mg PO Q6H PRN #10 tabs 02/28/22 (Reglan) oseltamivir 75 mg capsule (Tamiflu) 75 mg PO BID 5 days #10 caps 02/28/22 Allergies Allergy/AdvReac Type Severity Reaction Status Date / Time No Known Allergies Allergy Verified 02/28/22 09:43 General Stated Complaint: GenMedical SAMANTA: 4 Review of Systems All systems reviewed & are unremarkable except as noted in HPI and below PFSH All Active Problems (Updated 02/28/22 @ 10:14 by LUIGI Capone) Influenza A (Acute) Rh negative state in antepartum period (Acute) (Acute) Keloid scar of skin (Chronic) Acid reflux (Chronic) Sciatica (Chronic) Headache (Chronic) Medical History Carpal tunnel syndrome of right wrist Hemorrhoid History of gestational diabetes Rectal fissure 12 weeks post Surgical History H/O wisdom tooth extraction Hx of carpal tunnel repair Family History (Updated 02/24/22 @ 10:56 by Sarah Sampson CNM) Father Diabetes Brother Anxiety Paternal Uncle Bipolar disorder Autism Daughter Far-sighted Other Asthma Social History Smoking/Tobacco Use Status: Never Smoking risk assessment performed?: Yes Alcohol Intake: never Drug use: Never Substance use type: does not use Household members: spouse and children Housing: house Number of Children: 2 current occupation: Stay at home mom Sexually active: Yes Do you think of yourself as: straight/heterosexual Current gender identity: female Do you feel safe at home: Yes Do you feel safe in your relationship?: Yes Female Reproductive History Menstrual Age of Menarche: 14 control method: none History History 3 Para 2 Hx # Term Pregnancies 2 Multiple births 0 Hx # Pregnancies 0 Ectopic pregnancies 0 AB induced 0 Hx Number of Living Children 2 AB spontaneous 0 Past Pregnancies Del. Date GA/Weeks # Preg Succ Route Wgt Sex Labor Lgth Anesth esia Location Prov Complic 07/12/18 38 No vaginal 3061.748 g Female 6 hrs Ane a NISH Capps 07/29/20 39 No vaginal 3005.049 g Male 9 h 17m Terell Sampson CNM Delivery Date: 07/12/18 Last Updated by: Sarah Abarca CNM Stage 3 7 min.; 2nd degree perineal laceration repaired. Nilsa Delivery Date: 07/29/20 Last Updated by: Sarah Sampson CNM [facility] Exam Const General: cooperative, comfortable and no acute distress [facility] Head: normal to inspection Eyes Pupils: PERRL Chest Chest: normal inspection of the chest Resp Effort & Inspection: normal respiratory effort Auscultation: clear to auscultation bilaterally Cardio Rate: tachycardic Rhythm: regular rhythm GI Inspection: normal to inspection Auscultation: normal bowel sounds Other: non-tender Skin General skin exam: no rashes or lesions noted Neuro General: patient alert and patient oriented x3 Course Vital Signs Vital signs: Vital Signs Temperature 36.9 C 02/28/22 09:41 Pulse 123 H 02/28/22 09:41 Respiratory Rate 16 02/28/22 09:41 Blood Pressure 116/62 02/28/22 09:41 Pulse Oximetry 99 02/28/22 09:41 Temperature 36.9 C 02/28/22 09:41 Temperature Source Oral 02/28/22 09:41 Pulse 123 H 02/28/22 09:41 Respiratory Rate 16 02/28/22 09:41 Respiratory Effort Non-Labored 02/28/22 09:47 Respiratory Depth Normal 02/28/22 09:47 Respiratory Pattern Normal 02/28/22 09:47 Blood Pressure 116/62 02/28/22 09:41 Blood Pressure Position Sitting 02/28/22 09:41 Pulse Oximetry 99 02/28/22 09:41 Oxygen Delivery Method Room Air 02/28/22 09:41 Oxygen Flow Rate 0 02/28/22 09:41
[2022-02-28] MEDS: Metoclopramide 10 MG TAB PO (10:30)
[2022-02-28 10:33] VITALS: BP 108/70; PULSE 107; RESP 18; O2SAT 97
== END 2022-02-28 10:35 | disposition home or self-care (01) ==
PROVIDERS: Emergency Provider Physician Assistant; PCP Internal Medicine
DX: J10.1 Influenza due to other identified influenza virus with other respiratory manifestations (principal)
CPT/HCPCS: 99283

== ENCOUNTER 2022-05-03 01:15 | Outpatient (CLI) | payer MEDICAID, SELFPAY ==
--- NOTE | 2022-05-03 08:30 | DI.US_ITS ---
Exam(s) US OB 2-3 TRIMESTER EXAM: US OB 2-3 TRIMESTER CLINICAL HISTORY: anatomy, SURVEY, Z34.92. TECHNIQUE: Transabdominal obstetrical ultrasound performed. COMPARISON: US US OB JIMMY WEIGHT from 07/09/2020 FINDINGS: Number of fetuses: 1 position: VARIED heart rate: 150bpm Placental location: There is a grade 1 anterior placenta. No evidence of previa. The placental cord insertion site is 1.9 cm from the placental margin. Amniotic fluid index: Amount of fluid is within normal limits. ANATOMICAL SURVEY: Within normal limits. BIOMETRIC DATA: BPD: 5.15cm, 21weeks 4days HC: 19.19cm, 21weeks 3days AC: 16.47cm, 21weeks 4days FL: 3.7cm, 21weeks 5days Cisterna magna: 4.1mm Cerebellum: 2.32cm EFW: 437.58g, 0.97lb, 38.8% Composite Age: 21weeks 4days CASA: 09/09/2022 Heart Rate: 150bpm IMPRESSION: 1. Single live intrauterine gestation as above. 2. Normal anatomic survey. 3. Placental cord insertion site is 1.9 cm from the placental margin. DATA REPOSITORY:
== END 2022-05-03 01:35 ==
LOC: DI 01:15
PROVIDERS: PCP Internal Medicine; Visit Provider Advanced Practice Midwife
DX: Z34.92 Encounter for supervision of normal pregnancy, unspecified, second trimester (principal); Z3A.21 21 weeks gestation of pregnancy
CPT/HCPCS: 76805

== ENCOUNTER 2022-06-19 01:32 | Outpatient (CLI) | payer MEDICAID, SELFPAY ==
[2022-06-19 09:43] LABS: Glucose 1 Hour 148 mg/dL
[2022-06-19 11:34] LABS: Glucose 3 Hour 113 mg/dL
== END 2022-06-19 01:33 | disposition home or self-care (01) ==
LOC: LBO 01:32
PROVIDERS: PCP Internal Medicine; Visit Provider Advanced Practice Midwife
DX: Z34.90 Encounter for supervision of normal pregnancy, unspecified, unspecified trimester (principal); Z86.32 Personal history of gestational diabetes; O26.899 Other specified pregnancy related conditions, unspecified trimester; Z67.91 Unspecified blood type, Rh negative
CPT/HCPCS: 36415; 86850; 90384; 82951

== ENCOUNTER 2022-07-01 10:32 | Observation (INO) | payer MEDICAID, SELFPAY ==
--- NOTE | 2022-06-28 07:15 | DI.US_ITS ---
Exam(s) US OB F/U FACIAL/LVOT/RVOT EXAM: US OB F/U FACIAL/LVOT/RVOT CLINICAL HISTORY: low lying placenta,O44.42,z34.90. TECHNIQUE: Transabdominal obstetrical ultrasound performed. COMPARISON: US US OB 2-3 TRIMESTER from 05/03/2022 FINDINGS: Number of fetuses: 1 position: [facility] Placental location: There is a grade 1 anterior placenta. The placental tip is 3.2 cm from the inter nal os. No evidence of previa. The placental cord insertion site is 4.7 cm from the placental margin. IMPRESSION: 1. This is a limited examination for placental location. 2. There is no evidence of placenta previa. The placental tip is 3.2 cm from the internal os. 3. The placental cord insertion site is 4.7 cm from the placental margin. DATA REPOSITORY:
[2022-07-01] MEDS: HYDROmorphone 2 MG/ML SYR 1 MG IVP (10:55)
[2022-07-01] MEDS: Lactated Ringers 1,000 ML 125 ML IV (10:55)
[2022-07-01 11:03] VITALS: BP 100/57; PULSE 89; RESP 16; TEMP 36.3
[2022-07-01 11:15] LABS: HCT 31.9 % (36.0-46.0); HGB 10.5 g/dL (11.2-15.7); MCH 28.2 pg (27.0-33.0); MCHC 32.9 % (32.0-36.0); MCV 86 fL (80-95); MPV 9.7 fL (8.0-11.0); Platelet Count 194 10^3/uL (130-400); RBC 3.72 10^6/uL (3.93-5.22); RDW 13.6 % (11.7-14.6); RDW-SD 42.3 fL; WBC 9.62 10^3/uL (4.4-10.8)
[2022-07-01 11:24] VITALS: BP 100/57; PULSE 89; TEMP 36.3
--- NOTE | 2022-07-01 11:26 | HPE_ITS ---
Date of service: 07/01/22 Time of Service: 11:00 Assessment and Plan Assessment and plan (1) Left flank pain: Status: Acute Assessment and plan: 1. Observation, IV hydration and IV dilaudid for pain. 2. Consult with Dr. Herbie lee MD agrees to plan 3. CBC and type and screen 4. IF pain resolves patient would like to go home to rest vs continued observation. Will reassess. K[facility] OB-HPI Labor/Delivery History of Present Illness Chief Complaint: Other (left flank pain). CASA Calculator Estimated Delivery Date Method Current WG Current Estimate 09/08/22 LMP (Certain) 30w 1d Other Estimates 09/09/22 Ultrasound #1 30w 0d Comments: Lauren presents to for evaluation of left flank pain that started at 0730 this moring and has progressively worsened. She denies fever, chills or pain with urination. Denies abdominal pain, contractions or LOF or vaginal bleeding. Baby has been active but the pain makes her feel like baby is pressing down. She was raking the yard and pulling on tarps or debris yesterday. Denies any known injury. AYE History of Present Expected Delivery Route/Plan - CNM FOB/ - Ch[place]orta Buenrostro BG Interested in using the tub Specific Issues/Plan 1. early glucola d/t hx GDM = 115 2. Panorama: low risk x5 female fetus. Declines AFP, SMA or CF 3. Rh neg, discuss w/pt, Rhogam @ 28 wks ___ 4. Tandem nursing her toddler throughout and perhaps after 5. Flu illness in February 2022, fully recovered 6. Low lying placenta - 1.9 cms from os- repeat US at 28 weeks 3.2cm from OS 7. 3h 28w 81/148/142/113 8. Left hydronephrosis suspected, treated 07/01 US____ Assessment: History Reviewed & Current Review of Systems All systems reviewed & are unremarkable except as noted in HPI and below PFSH All Active Problems (Updated 07/01/22 @ 11:33 by Sarah Sampson CNM) Left flank pain (Acute) (Acute) Low lying placenta nos or without hemorrhage, second trimester (Acute) Rh negative state in antepartum period (Acute) (Acute) Keloid scar of skin (Chronic) Acid reflux (Chronic) Sciatica (Chronic) Headache (Chronic) Medical History Carpal tunnel syndrome of right wrist Hemorrhoid History of gestational diabetes Rectal fissure 12 weeks post Surgical History H/O wisdom tooth extraction Hx of carpal tunnel repair Family History (Updated 02/24/22 @ 10:56 by Sarah Sampson CNM) Father Diabetes Brother Anxiety Paternal Uncle Bipolar disorder Autism Daughter Far-sighted Other Asthma Social History Smoking/Tobacco Use Status: Never Smoking risk assessment performed?: Yes Alcohol Intake: never Drug use: Never Substance use type: does not use Household members: spouse and children Housing: house Number of Children: 2 current occupation: Stay at home mom Sexually active: Yes Do you think of yourself as: straight/heterosexual Current gender identity: female Do you feel safe at home: Yes Do you feel safe in your relationship?: Yes Female Reproductive History Menstrual Age of Menarche: 14 control method: none History History 3 Para 2 Hx # Term Pregnancies 2 Multiple births 0 Hx # Pregnancies 0 Ectopic pregnancies 0 AB induced 0 Hx Number of Living Children 2 AB spontaneous 0 Past Pregnancies Del. Date GA/Weeks # Preg Succ Route Wgt Sex Labor Lgth Anesth esia Location Prov Complic 07/12/18 38 No vaginal 6 lb 12 oz Female 6 hrs Ane renata Capps CNM 07/29/20 39 No vaginal 6 lb 10 oz Male 9 h 17m Terell Sampson CNM Delivery Date: 07/12/18 Last Updated by: Sarah Abarca CNM Stage 3 7 min.; 2nd degree perineal laceration repaired. Nilsa Delivery Date: 07/29/20 Last Updated by: Sarah Sampson CNM Kuldip water Meds Allergies and Home Medications Allergies Allergy/AdvReac Type Severity Reaction Status Date / Time No Known Allergies Allergy Verified 06/19/22 08:40 Home Medications Medication Instructions Recorded Confirmed Type multivitamin 1 tab PO DAILY 07/29/18 07/01/22 History acetaminophen 500 mg capsule 1,000 mg PO PRN PRN 02/28/22 07/01/22 History Exam Physical Exam Vital signs: Pulse BP 89 100/57 L 07/01/22 11:03 07/01/22 11:03 Vital Signs Reviewed: Yes Constitutional Constitutional: moderate distress (due to pain on left flank) Detailed Labor and Delivery Exam Dilation: 0 Effacement (%): 0 station: -4 Law Score: Cervical Points Exam 0 1 2 3 Dilation Closed 1-2cm 3-4 cm 5-6cm Effacement 0-30% 40-50% 60-70% 80% Consistency Firm Medium Soft Station -3 -2 -1,0 +1,+2 Position Posterior Mid Anterior Amniotic Membrane Status: Intact Monitor Mode: External Contraction Frequency(min): 0 Fetus A Heart Rate Baseline: 130 Monitor Accelerations: 15 X 15 Monitor Decelerations: None (difficult to maintain tracing due to frequent movement) HEENT Exam HEENT Exam: Normal Neck Exam Neck Exam: Normal Chest/Brest/Axilla Exam Chest Exam: Not Done Breast Exam Breast Exam: Not Done Respiratory Exam Respiratory Exam: Normal Cardiovascular Exam Cardiovascular Exam: Normal Abdominal Exam Abdominal Exam: Normal (soft and non tender to palpation, size equals dates) Rectal Exam Rectal Exam: Not Done Exam Exam: Normal Extremities Exam Extremities Exam: Normal Back/Spine/Pelvis Exam Back Exam: Abnormal (+ CVAT on left) Skin Exam Skin Exam: Normal Neurological Exam Neurological Exam: Normal Psychiatric Exam Psychiatric Exam: Normal Results Abnormal Lab Findings: Abnormal Labs 07/01/22 11:05 RBC 3.72 L Hgb 10.5 L Hct 31.9 L Risk Assessment Risk for Shoulder Dystocia Historical/Initial OB: NEGATIVE FOR: Pelvic Abnormality, Pre- BMI>30, Previous Shoulder Dystocia or Previous Macrosomia Counselin02/24/22 KH Risk for Pre-Eclampsia Date Initiated/Initials: 02/24/22 Yes, if one or more: NEGATIVE FOR: Hx Pre-E/Gest HTN, Chronic HTN, Multiple Gestation, Pre-gestational DM, Renal Disease, Systemic Lupus or APA Syndrome Yes, if 2 or more: NEGATIVE FOR: Nulliparity, Age>= 35 yrs, >10yr btwn pregnancies, BMI>30, ethinicty, Mother/Sister w/ Pre-E or Previous IUGR Risks Reviewed Risks Reviewed Upon Admission: Yes
--- NOTE | 2022-07-01 13:12 | W.PM.OBDISCH ---
Date of service: 07/01/22 Time of Service: 13:12 DS: Diagnosis Discharge Diagnosis (1) Left flank pain: Status: Acute Asessment and Plan: 1. Patient prefers discharge to home with PO medication VS. continued assessment in hospital 2. Will send in prescription for PO dilaudid to be used when pain is severe 3. Plan follow up in office in 2 days and will help patient schedule renal US at that time. 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 4. Discussed safe use of controlled substance and avoiding driving, operating machinery. Discussed need to modify her home duties to accommodate this condition. Has good support at home for this. Discharge Plan Disposition Patient Disposition: Home Condition: Improving Discharge Details Reason For Visit: Left Flank Pain in at 30 weeks Gestation Admit Date/Time: 07/01/22 10:32 Admit Provider: Sarah Sampson Attending Provider: Sarah Sampson Primary Care Provider: Inessa Isbell Hospital Course Hospital Course: IV hydration and dilaudid for pain management with good relief. Patient had normal tracing. She has appointment in office 4/24 am and we will help her arrange renal US at that time. Reviewed need to modify home activities to prevent increasing pain. Medication management with dilaudid at home per recommendation of Dr. Stoner reviewed as well. Patient is aware that this is controlled substance and should be used only as needed. She knows not to drive while taking this medication. She is aware to store medication safely from others as well. KH Home Meds and New Rx's Prescriptions: Continued multivitamin tablet 1 tab PO DAILY acetaminophen 500 mg Capsule 1,000 mg PO PRN PRN Discharge Instructions Instructions: Hydronephrosis (GEN) Activity:: Activity as Tolerated Equipment/Supplies:: No Equipment Needed Diet:: As Tolerated Discharge Orders Discharge Orders: Discharge Order (Routine); Ordered 07/01/22 Ordered By: Sarah Sampson OB:DS Summary Contraception Discussed Contraception Discussed: No ( patient), Status at Discharge Functional status at discharge: independent ambulation Overall status at discharge: patient is progressing back to baseline Mental Status: mental status grossly normal Speech and Movement: speech and movement normal Mood: congruent mood Affect: normal affect Time Spent with Patient providing and/or coordinating discharge services: Less than 30 minutes Exam Physical Exam Vital signs: Pulse BP 89 100/57 L 07/01/22 11:03 07/01/22 11:03 Vital Signs Reviewed: Yes Constitutional Constitutional: no acute distress HEENT Exam HEENT Exam: Normal Neck Exam Neck Exam: Not Done Respiratory Exam Respiratory Exam: Normal Cardiovascular Exam Cardiovascular Exam: Normal Abdominal Exam Comments: normal exam, soft to palpation, size equals dates. KH Rectal Exam Rectal Exam: Not Done Extremities Exam Comment: normal VE and genital exam Back/Spine/Pelvis Exam Back Exam: Abnormal (+ CVAT left) Skin Exam Skin Exam: Normal Neurological Exam Neurological Exam: Normal Psychiatric Exam Psychiatric Exam: Normal PFSH All Active Problems (Updated 07/01/22 @ 11:33 by Sarah Sampson CNM) Left flank pain (Acute) (Acute) Low lying placenta nos or without hemorrhage, second trimester (Acute) Rh negative state in antepartum period (Acute) (Acute) Keloid scar of skin (Chronic) Acid reflux (Chronic) Sciatica (Chronic) Headache (Chronic) Medical History Carpal tunnel syndrome of right wrist Hemorrhoid History of gestational diabetes Rectal fissure 12 weeks post Surgical History H/O wisdom tooth extraction Hx of carpal tunnel repair Family History (Updated 02/24/22 @ 10:56 by Sarah Sampson CNM) Father Diabetes Brother Anxiety Paternal Uncle Bipolar disorder Autism Daughter Far-sighted Other Asthma Social History Smoking/Tobacco Use Status: Never Smoking risk assessment performed?: Yes Alcohol Intake: never Drug use: Never Substance use type: does not use Household members: spouse and children Housing: house Number of Children: 2 current occupation: Stay at home mom Sexually active: Yes Do you think of yourself as: straight/heterosexual Current gender identity: female Do you feel safe at home: Yes Do you feel safe in your relationship?: Yes Female Reproductive History Menstrual Age of Menarche: 14 control method: none History History 3 Para 2 Hx # Term Pregnancies 2 Multiple births 0 Hx # Pregnancies 0 Ectopic pregnancies 0 AB induced 0 Hx Number of Living Children 2 AB spontaneous 0 Past Pregnancies Del. Date GA/Weeks # Preg Succ Route Wgt Sex Labor Lgth Anesthesia Location Prov Complic 07/12/18 38 No vaginal 6 lb 12 oz Female 6 hrs Jean-Pierre Capps CNM 07/29/20 39 No vaginal 6 lb 10 oz Male 9 h 17m Adelaida Sampson CNM Delivery Date: 07/12/18 Last Updated by: Sarah Abarca CNM Stage 3 7 min.; 2nd degree perineal laceration repaired. Nilsa Delivery Date: 07/29/20 Last Updated by: Sarah Sampson CNM Kuldip water DS: Data Vitals/I&O Vitals and I&O: Vital Signs Pulse 89 07/01/22 11:03 Pulse 89 07/01/22 11:24 Blood Pressure 100/57 L 07/01/22 11:03 Blood Pressure 100/57 07/01/22 11:24 Intake & Output 06/30/22 07/01/22 07/01/22 23:59 11:59 23:59 Weight 146 lb Data Completed and Pending Labs on day of discharge: Labs from last 24 hours 07/01/22 07/01/22 11:05 11:05 WBC 9.62 RBC 3.72 L Hgb 10.5 L Hct 31.9 L MCV 86 MCH 28.2 MCHC 32.9 RDW 13.6 Plt Count 194 MPV 9.7 Patient ABO/Rh O Negative Antibody Screen POSITIVE Antibody Identification Anti-D 07/01/22 12:00 Urine - Voided Urine Culture - Pending Preliminary micro results at discharge 07/01/22 12:00 Urine Culture - Pending Urine - Voided
== END 2022-07-01 13:45 | disposition home or self-care (01) ==
LOC: OBS 11:33 → DI 07-03 11:24
PROVIDERS: Admitting Provider Advanced Practice Midwife; PCP Internal Medicine; Visit Provider Advanced Practice Midwife
DX: O44.43 Low lying placenta NOS or without hemorrhage, third trimester (principal); R10.32 Left lower quadrant pain; Z3A.30 30 weeks gestation of pregnancy; O36.0930 Maternal care for other rhesus isoimmunization, third trimester, not applicable or unspecified; O99.613 Diseases of the digestive system complicating pregnancy, third trimester; O26.893 Other specified pregnancy related conditions, third trimester; K21.9 Gastro-esophageal reflux disease without esophagitis; R51.9 Headache, unspecified
CPT/HCPCS: 36415; 76815; 85027; 86850; 86900; 86901; 96360; 96361; 96374; 59025; 86870; 87086; J1170

== ENCOUNTER 2022-08-10 21:32 | Outpatient (REF) | payer MEDICAID, SELFPAY ==
[2022-08-10 17:44] LABS: *AMPHETAMINES SCREEN URINE Negative (Negative); *BARBITURATES SCREEN URINE Negative (Negative); *BENZODIAZEPINES SCREEN URINE Negative (Negative); Cannabinoids THC Negative (Negative); Cocaine Screen,Urine Negative (Negative); METHADONE URINE SCREEN Negative (Negative); OPIATES URINE SCREEN Negative (Negative)
[2022-08-10 17:45] LABS: Tricyclic Antidepressants Negative (Negative)
[2022-08-17 10:54] LABS: Buprenorphine Negative ng/mL (Cutoff: 5.0); Norbuprenorphine Negative ng/mL (Cutoff: 2.5)
== END 2022-08-10 21:33 | disposition home or self-care (01) ==
LOC: LBN 21:32
PROVIDERS: PCP Internal Medicine; Visit Provider Advanced Practice Midwife
DX: Z34.93 Encounter for supervision of normal pregnancy, unspecified, third trimester (principal); Z36.85 Encounter for antenatal screening for Streptococcus B; Z3A.35 35 weeks gestation of pregnancy
CPT/HCPCS: 80307; 80348; 87081

== ENCOUNTER 2022-08-18 12:09 | Outpatient (CLI) | payer MEDICAID, SELFPAY ==
--- NOTE | 2022-08-18 11:45 | DI.US_ITS ---
Exam(s) US OB JIMMY WEIGHT EXAM: US OB JIMMY WEIGHT CLINICAL HISTORY: measuring 33 at 37 weeks, dating, 026.843,. TECHNIQUE: Transabdominal obstetrical ultrasound performed. COMPARISON: US US OB F/U FACIAL/LVOT/RVOT from 06/28/2022 FINDINGS: Number of fetuses: 1 position: CEPHALIC Placental location: There is a grade 1-2 anterior placenta. No evidence of previa. BIOMETRIC DATA: BPD: 8.61cm, 34weeks 5days HC: 31.46cm, 35weeks 2days AC: 32.23cm, 36weeks 1day FL: 7.01cm, 36weeks EFW: 2,782.35g, 6lb 2.2oz, 26.1% Composite Age: 35weeks 4days CASA: 09/18/2022 Heart Rate: 139bpm Amniotic fluid index: 10.76cm. Visually, amount of fluid is within normal limits. IMPRESSION: 1. Single live intrauterine gestation as above. 2. Estimated weight is 2782gms. This is the 26th percentile. 3. Amniotic fluid index is 10.8 cm. Visually within normal limits. DATA REPOSITORY:
== END 2022-08-18 12:29 ==
LOC: DI 12:09
PROVIDERS: PCP Internal Medicine; Visit Provider Advanced Practice Midwife
DX: O26.843 Uterine size-date discrepancy, third trimester (principal)
CPT/HCPCS: 76816

== ENCOUNTER 2022-09-06 10:59 | Outpatient (CLI) | payer MEDICAID, SELFPAY ==
[2022-09-06 11:20] VITALS: BP 118/78; PULSE 88; TEMP 36.3
--- NOTE | 2022-09-06 11:43 | W.OBNST ---
Date of service: 09/06/22 Time of Service: 11:43 NST Evaluation Reason for NST Reasons for Nonstress Test: FALSE LABOR Gestational Age Gestational Age in Weeks and Days: 39 Weeks and 5Days Test and Monitor Explained Test/Monitor Explained: Test Explained, Monitor Explained and Patient Verbalized Understanding Vital Signs Blood Pressure: 118/78 Pulse: 88 Temperature: 97.3 F Urine Results Urine Protein: Negative Urine Ketones: Negative Urine Glucose: Negative Urine Blood: Positive NST Information Date on Monitor: 09/06/22 Time on Monitor: 10:27 Date off Monitor: 09/06/22 Time off Monitor: 11:00 Total Time on Monitor: 33 NST Interventions: PO Hydration Contraction Frequency: 4-9 NST Evaluation Patient States Movement: Present FHR Baseline: 130 Variability: Moderate 6-25 bpm Accelerations: 15x15 Decelerations: None NST Results: Reactive Note Ultrasound Done: N/A. NST Note Note: NST reactive and reassuring. Having occasional contractions. Preferred discharge to home to continue to do some early labor and will return as needs. AYE NST Reviewed and Verified by: Sarah Sampson
[2022-09-06 11:44] VITALS: BP 118/78; PULSE 88; TEMP 36.3
== END 2022-09-06 11:25 | disposition home or self-care (01) ==
LOC: BCD 11:02 → OBS 11:06
PROVIDERS: PCP Internal Medicine; Visit Provider Advanced Practice Midwife
DX: O47.1 False labor at or after 37 completed weeks of gestation (principal); Z3A.39 39 weeks gestation of pregnancy
CPT/HCPCS: 59025

== ENCOUNTER 2022-09-06 21:38 | Inpatient (IN) | payer MEDICAID, SELFPAY ==
--- NOTE | 2022-09-06 21:43 | HPE_ITS ---
Date of service: 09/06/22 Time of Service: 21:43 Assessment and Plan Assessment and plan (1) Labor, prolonged latent phase: Status: Acute Assessment and plan: 1. Due to 5cm dilation will admit and observe for progress and consider augmentation with AROM 2. Admit, CBC, type and screen 3. tylenol 1000mg PO for KOLB 4. Intermittent doppler FHR assessment 5. Re-assess in 2 hours or prn. OB-HPI Labor/Delivery History of Present Illness Reason for Visit: R/O Labor Chief Complaint: Uterine Contractions. CASA Calculator Estimated Delivery Date Method Current WG Current Estimate 09/08/22 LMP (Certain) 39w 5d Other Estimates 09/09/22 Ultrasound #1 39w 4d Comments: Lauren presents for a labor check. She has been having contractions all day but they are still irregular. She reports so much pressure with contractions that she was concerned if she waited too long she would deliver at home. Denies ROM or show. Baby is active. Has had a headache all day that was not relieved by resting or PO hydration. She has not taken tylenol but agrees to taking some at this time. No visual disturbance or epigastric pain. BP 117/72 and urine dip is negative for protein on admission. She would like to be admitted and once KOLB is better consider AROM or augmentation to make labor more effective. AYE History of Present Expected Delivery Route/Plan - CNM FOB/ - [place] Radha Mcrae Interested in using the tub, might prefer smaller tub GBS negative Specific Issues/Plan 1. early glucola d/t hx GDM = 115 2. Panorama: low risk x5 female fetus. Declines AFP, SMA or CF 3. Rh neg, discuss w/pt, Rhogam @ 28 wks, given 07/01/22 4. Tandem nursing her toddler throughout and perhaps after 5. Low lying placenta - 1.9 cms from os- repeat US at 28 weeks 3.2cm from OS 6. Left hydronephrosis suspected, treated 07/01 with dilaudid, symptoms resolved after discharge. 7. Left sciatica-sees a chiropractor regularly. 8. US for S<D 08/18/22 EFW 26% 6lb2oz, cephalic, JIMMY 10.7 patient aware Assessment: History Reviewed & Current Review of Systems All systems reviewed & are unremarkable except as noted in HPI and below Constitutional Comments: KOLB today that is painful. Has not tried medication to relieve it. KH PFSH All Active Problems (Updated 09/06/22 @ 22:00 by Sarah Sampson CNM) Labor, prolonged latent phase (Acute) Size of fetus inconsistent with dates in third trimester (Acute) (Acute) Rh negative state in antepartum period (Acute) Acid reflux (Chronic) Sciatica (Chronic) Headache (Chronic) Medical History (Updated 09/06/22 @ 22:00 by Sarah Sampson CNM) Carpal tunnel syndrome of right wrist Hemorrhoid History of gestational diabetes Keloid scar of skin Left flank pain Low lying placenta nos or without hemorrhage, second trimester Rectal fissure 12 weeks post Right carpal tunnel syndrome (08/18/15) surgery 2016 Skin lesion Dry skin Spasm of muscle Tenosynovitis of wrist (08/18/15) Surgical History H/O wisdom tooth extraction Hx of carpal tunnel repair Family History Father Diabetes Brother Anxiety Paternal Uncle Bipolar disorder Autism Daughter Far-sighted Other Asthma Social History Smoking/Tobacco Use Status: Never Smoking risk assessment performed?: Yes Alcohol Intake: never Drug use: Never Substance use type: does not use Household members: spouse and children Housing: house Number of Children: 2 current occupation: Stay at home mom Sexually active: Yes Do you think of yourself as: straight/heterosexual Current gender identity: female Do you feel safe at home: Yes Do you feel safe in your relationship?: Yes Female Reproductive History Menstrual Age of Menarche: 14 control method: none History History 3 Para 2 Hx # Term Pregnancies 2 Multiple births 0 Hx # Pregnancies 0 Ectopic pregnancies 0 AB induced 0 Hx Number of Living Children 2 AB spontaneous 0 Past Pregnancies Del. Date GA/Weeks # Preg Succ Route Wgt Sex Labor Lgth Anesth esia Location Prov Complic 07/12/18 38 No vaginal 6 lb 12 oz Female 6 hrs Ane renata Capps CNM 07/29/20 39 No vaginal 6 lb 10 oz Male 9 h 17m Terell Samposn CNM Delivery Date: 07/12/18 Last Updated by: Sarah Abarca CNM Stage 3 7 min.; 2nd degree perineal laceration repaired. Nilsa. positive GBS Delivery Date: 07/29/20 Last Updated by: Sarah Sampson CNM [facility] Meds Allergies and Home Medications Allergies Allergy/AdvReac Type Severity Reaction Status Date / Time No Known Allergies Allergy Verified 09/06/22 21:56 Home Medications Medication Instructions Recorded Confirmed Type multivitamin 1 tab PO DAILY 07/29/18 09/06/22 History acetaminophen 500 mg capsule 1,000 mg PO PRN PRN 02/28/22 09/01/22 History ferrous sulfate 325 mg (65 mg 325 mg PO DAILY #60 tabs 08/10/22 09/06/22 Rx iron) tablet Exam Physical Exam Vital Signs Reviewed: Yes Constitutional Constitutional: mild distress (KOLB and contractions) Detailed Labor and Delivery Exam Dilation: 5 Effacement (%): 50 station: -2 Position: AJ Cervix position: posterior Consistency: soft Luna Score: Cervical Points Exam 0 1 2 3 Dilation Closed 1-2cm 3-4 cm 5-6cm Effacement 0-30% 40-50% 60-70% 80% Consistency Firm Medium Soft Station -3 -2 -1,0 +1,+2 Position Posterior Mid Anterior LUNA Score(Cervical Ripeness Score): 7 Amniotic Membrane Status: Intact Contraction Frequency(min): 10 Contraction Duration(sec): 60 Contraction Intensity: Moderate Fetus A Heart Rate Baseline: 135 Monitor Accelerations: 10 X 10 Monitor Decelerations: None Variability: Moderate (6-25 BPM) Categories: Category I Est. Weight: 6 lb 6 oz HEENT Exam HEENT Exam: Normal (KOLB without vision changes) Neck Exam Neck Exam: Normal (visual exam) Chest/Brest/Axilla Exam Chest Exam: Normal Breast Exam Breast Exam: Not Done Respiratory Exam Respiratory Exam: Normal Cardiovascular Exam Cardiovascular Exam: Normal Abdominal Exam Abdominal Exam: Normal Rectal Exam Rectal Exam: Normal Exam Exam: Normal Extremities Exam Extremities Exam: Normal Back/Spine/Pelvis Exam Back Exam: Not Done Pelvis Adequate: Yes Skin Exam Skin Exam: Normal Neurological Exam Neurological Exam: Normal Psychiatric Exam Psychiatric Exam: Normal Results Results Group Beta Strep: Negative Blood Type: O- Rubella Status: Immune Varicella Immunity: Immune Lab Results: cfDNA LR female, GC CT neg, Hep B&C neg, HIV neg, Syphillis neg, early 1 hour 115, 3 hour at 28 weeks 81/148/143/113 Risk Assessment Risk for Shoulder Dystocia Historical/Initial OB: NEGATIVE FOR: Pelvic Abnormality, Pre- BMI>30, Previous Shoulder Dystocia or Previous Macrosomia 40 Weeks: NEGATIVE FOR: EFW> 4500 gms, Maternal Weight Gain >40lb or Post Dates Counselin02/24/22 AYE Delivery Plan @ 40 wks: NVD. GRIFFITHS Risk for Pre-Eclampsia Date Initiated/Initials: 02/24/22 Yes, if one or more: NEGATIVE FOR: Hx Pre-E/Gest HTN, Chronic HTN, Multiple Gestation, Pre-gestational DM, Renal Disease, Systemic Lupus or APA Syndrome Yes, if 2 or more: NEGATIVE FOR: Nulliparity, Age>= 35 yrs, >10yr btwn pregnancies, BMI>30, ethinicty, Mother/Sister w/ Pre-E or Previous IUGR Risk for Post- Hemorrhage 36 Weeks: NEGATIVE FOR: Anemia, hgb<10, Low platelets(thrombocytopenia), Gestational HTN or Pre-E, Polyhydraminios or EFW>4500gms At Risk?: Yes (prolonged latent phase labor, mod risk AYE) Counseled re: Active Management: Yes Date/Initials: 09/06/22 AYE Risks Reviewed Risks Reviewed Upon Admission: Yes
[2022-09-06] MEDS: Acetaminophen 500 MG TAB 1000 MG PO (21:45)
[2022-09-06 21:54] VITALS: BP 117/72; PULSE 101; RESP 18; TEMP 36.6
[2022-09-06 22:10] LABS: HCT 33.8 % (36.0-46.0); HGB 11.1 g/dL (11.2-15.7); MCH 28.2 pg (27.0-33.0); MCHC 32.8 % (32.0-36.0); MCV 86 fL (80-95); MPV 10.4 fL (8.0-11.0); Platelet Count 178 10^3/uL (130-400); RBC 3.93 10^6/uL (3.93-5.22); RDW 18.1 % (11.7-14.6); RDW-SD 55.8 fL; WBC 7.74 10^3/uL (4.4-10.8)
[2022-09-06 23:54] VITALS: BP 126/77; PULSE 100
[2022-09-07] VITALS (16 sets, daily range): BP systolic 97–124; BP diastolic 52–82; PULSE 64–255; RESP 16; TEMP 36.4–36.6; O2SAT 83–99
--- NOTE | 2022-09-07 03:06 | W.PM.OBNL1 ---
Date of service: 09/07/22 Time of Service: 03:06 Pelvic Exam Dilation: 5.5 Effacement (%): 80 station: -2 Cervix Position: posterior Consistency: soft Contractions Monitor Mode: Palpation Contraction Frequency(min): 5-10 Contraction Duration(sec): 60 Intensity: Moderate Fetus A Monitor: Doppler Heart Rate Baseline: 135 Assessment and Plan Assessment and plan (1) Labor, prolonged latent phase: Status: Acute Assessment and plan: 1. Lauren will use tub for relaxation in her room 2. Plan to reassess in 1 hour or prn. Offered AROM and patient is considering this option. KH Objective Abnormal lab results 09/06/22 Range/Units 22:00 Hgb 11.1 L (11.2-15.7) g/dL Hct 33.8 L (36.0-46.0) % RDW 18.1 H (11.7-14.6) % Temp Pulse Resp BP 97.9 F 85 18 112/70 09/06/22 21:54 09/07/22 01:54 09/06/22 21:54 09/07/22 01:54 Laboratory Results WBC 7.74 10^3/uL (4.4-10.8) 09/06/22 22:00 RBC 3.93 10^6/uL (3.93-5.22) 09/06/22 22:00 Hgb 11.1 g/dL (11.2-15.7) L 09/06/22 22:00 Hct 33.8 % (36.0-46.0) L 09/06/22 22:00 MCV 86 fL (80-95) 09/06/22 22:00 MCH 28.2 pg (27.0-33.0) 09/06/22 22:00 MCHC 32.8 % (32.0-36.0) 09/06/22 22:00 RDW 18.1 % (11.7-14.6) H 09/06/22 22:00 Plt Count 178 10^3/uL (130-400) 09/06/22 22:00 MPV 10.4 fL (8.0-11.0) 09/06/22 22:00 Patient ABO/Rh O Negative 09/06/22 22:00 Antibody Screen POSITIVE 09/06/22 22:00 Antibody Identification Anti-D 09/06/22 22:00 Subjective Interval history since last seen: Lauren has continued to have irregular contractions but reports they are stronger. She plans to get into the tub in her room. Requested VE. Denies LOF or bloody show. KH Results Hemoglobin/Hematocrit: Hgb 11.1 g/dL (11.2-15.7) L 09/06/22 22:00 Hct 33.8 % (36.0-46.0) L 09/06/22 22:00 Abnormal Lab Findings: Abnormal Labs 09/06/22 22:00 Hgb 11.1 L Hct 33.8 L RDW 18.1 H
--- NOTE | 2022-09-07 06:17 | W.PM.OBNL1 ---
Date of service: 09/07/22 Time of Service: 06:18 Informed Consent Informed Consent: Augmentation of Labor and Risk,Benefits,Alternatives Discussed Pelvic Exam Dilation: 6 Effacement (%): 80 station: -2 Cervix Position: posterior Consistency: soft BISHOPS Score(Cervical Ripeness Score): 9 Contractions Monitor Mode: Palpation Contraction Frequency(min): irregular Intensity: Mild Fetus A Monitor: Doppler Heart Rate Baseline: 135 Amniotic Membrane Status: Intact Assessment Note: Lauren is aware that continuous monitoring is required for pitocin augmentation, she continues to opt for this method of augmentation. Assessment and Plan Assessment and plan (1) Labor, prolonged latent phase: Status: Acute Assessment and plan: 1. We discussed option of continued expectant management vs augmentation of labor. Lauren is tired and wants to move her labor forward. She feels that going home is unacceptable due to being 6 cm and due to the fact that leaving her young children again would be too difficult. 2. Options for labor augmentation reviewed, AROM and or Pitocin. After reviewing how both methods would work and associated procedures, risks, benefits and alternatives she has chosen to move forward with Pitocin. Her plan for management of discomfort is nitrous if needed. 3. Will review patient's plan with Dr. North as well. 4. Continue to expect NVD. AYE Objective Abnormal lab results 09/06/22 Range/Units 22:00 Hgb 11.1 L (11.2-15.7) g/dL Hct 33.8 L (36.0-46.0) % RDW 18.1 H (11.7-14.6) % Temp Pulse Resp BP 97.9 F 91 H 18 116/77 09/06/22 21:54 09/07/22 05:58 09/06/22 21:54 09/07/22 05:58 Laboratory Results WBC 7.74 10^3/uL (4.4-10.8) 09/06/22 22:00 RBC 3.93 10^6/uL (3.93-5.22) 09/06/22 22:00 Hgb 11.1 g/dL (11.2-15.7) L 09/06/22 22:00 Hct 33.8 % (36.0-46.0) L 09/06/22 22:00 MCV 86 fL (80-95) 09/06/22 22:00 MCH 28.2 pg (27.0-33.0) 09/06/22 22:00 MCHC 32.8 % (32.0-36.0) 09/06/22 22:00 RDW 18.1 % (11.7-14.6) H 09/06/22 22:00 Plt Count 178 10^3/uL (130-400) 09/06/22 22:00 MPV 10.4 fL (8.0-11.0) 09/06/22 22:00 Patient ABO/Rh O Negative 09/06/22 22:00 Antibody Screen POSITIVE 09/06/22 22:00 Antibody Identification Anti-D 09/06/22 22:00 Vital Signs Reviewed: Yes Subjective Interval history since last seen: Lauren reports that contractions have spaced out more. She is frustrated and fearful of going home as she feels if her water breaks she would deliver at home. We discussed options of continued expectant management, pitocin augmentation and or AROM augmentation. She has opted for pitocin as she is aware that if AROM does not make effective contractions she will need pitocin to cause that to happen. Interventions Augmentation , Pitocin rate (mU/min): 2 reviewed AROM and Pitocin, patient prefer pitocin to be started. . Results Hemoglobin/Hematocrit: Hgb 11.1 g/dL (11.2-15.7) L 09/06/22 22:00 Hct 33.8 % (36.0-46.0) L 09/06/22 22:00 Abnormal Lab Findings: Abnormal Labs 09/06/22 22:00 Hgb 11.1 L Hct 33.8 L RDW 18.1 H
[2022-09-07] MEDS: Oxytocin/Normal Saline 30 UNIT/500 ML BAG 2 UNITS IV (07:03)
[2022-09-07] MEDS: Lactated Ringers 1,000 ML 125 ML IV (07:04)
[2022-09-07] MEDS: Acetaminophen 500 MG TAB 1000 MG PO (09:44)
--- NOTE | 2022-09-07 09:50 | W.PM.OBNL1 ---
Date of service: 09/07/22 Time of Service: 09:50 Informed Consent Informed Consent: Augmentation of Labor and Risk,Benefits,Alternatives Discussed Pelvic Exam Dilation: 7 Effacement (%): 90 station: -2 Cervix Position: mid Consistency: soft Contractions Monitor Mode: External Contraction Frequency(min): q2-4 Intensity: Moderate/Strong Fetus A Monitor: External (US) Heart Rate Baseline: 140 Presentation: Cephalic Variability: Moderate (6-25 BPM) Categories: Category I Accelerations: Present Decelerations: None Amniotic Membrane Status: Intact Assessment and Plan Assessment and plan (1) Labor, prolonged latent phase: Status: Acute Assessment and plan: A: On shift note 31 yo at full term in active labor Category 1 tracing GBS negative; low risk multipara P: Pitocin augmentation started at 0700, currently @ 8mu/min Pt desires unemdicated Continue augmentation Anticipate Objective Vital Signs Reviewed: Yes Subjective Interval history since last seen: Contractions getting stronger since pitocin was started.
--- NOTE | 2022-09-07 10:37 | OBVDS_ITS ---
Date of service: 09/07/22 Time of Service: 10:37 OB Labor/ Delivery Information Baby A Delivery Delivery Method: Spontaneaous Presentation: Cephalic Cephalic Position: Vertex Vertex Position: Left Occipital Anterior Breech Position: N/A Cord Description-Baby A: 3 Vessels, Nuchal Cord and Reduced (loose nuchal cord that also wrapped around the body x1, reduced over shoulder and baby delivered through loop) Amniotic Fluid: Clear Estimated Blood Loss: 350 Delivery Outcome: Liveborn Infant Transferred: Remains with Mother Providers Nurse Senior Quality Assurance Analyst: Anayeli Spence Nurse: Alicia Salgado Nurse: Robert Vazquez Labor/Delivery Information Number of Babies in Womb: 1 Steroids Given: None Reason Steroids Not Administered: N/A Group Beta Strep: Negative Antibiotics Administered: No Rubella Status: Immune Blood Type: O- Varicella Immunity: Immune Shoulder Dystocia: No Note: Pt ambulated to BR to void and then returned to bed, SROM occurred with subsequent increase in vaginal pressure and pt requested nitrous inhalant, variable decel with contraction noted and pt turned to LLP, 2 contractions later of a vigorous female over intact perineum, shoulders delivered easily, baby unwrapped from cord loop and passed to mother's arms. pitocin bolus begun, Krueger placenta delivered intact with 3VC, cord blood collected. First degree perineal laceration repaired using topical hurricaine spray for anesthesia, fundus firm below umbilicus, vaginal sweep performed and no clots evacuated, strong family bonding observed, apgars 9/9, weight 3435 gms. Stages of Labor Onset of Labor Date: 09/06/22 Onset of Labor Time: 07:00 Complete Dilatation Date: 09/07/22 Complete Dilatation Time: 10:12 Labor - Stage 1 Duration: 27 hours and 12 minutes ROM Baby A: 09/07/22 ROM Baby A: 09:57 ROM Total Time- Baby A: [id number] Infant Delivery Date-Baby A: 09/07/22 Infant Delivery Time-Baby A: 10:13 Labor Stage 2 Duration: 1 minutes Placenta Delivery Date-Baby A: 09/07/22 Placenta Delivery Time-Baby A: 10:18 Labor-Stage 3 Duration: 5 minutes Total Length of Labor-Baby A: 27 hours and 13 minutes Placenta Cultured: No Placenta Status: Delivered Baby A Infant Gender: Female Gestational Status: Term (39-41.6 wks) Gestational Age in Weeks/Days: 39 Weeks and 6 Days weight: 7 lb 9.166 oz Weight Comment: 3435 gms Length-Baby A: 20 in Score-1 Minute Interval(Baby A) Heart Rate-1 minute: 100 BPM or Greater Respiratory Effort- 1 minute: Spontaneous/Strong Cry Muscle Tone-1 minute: Active Movement Reflex Response-1 minute: Prompt Response Color-1 minute: Bluish Hands or Feet Total Score-1 minute: 9 Score-5 Minute Interval(Baby A) Heart Rate- 5 minute: 100 BPM or Greater Respiratory Effort-5 minute: Spontaneous/Strong Cry Muscle Tone-5 minute: Active Movement Reflex Response-5 minute: Prompt Response Color-5 minute: Bluish Hands or Feet Total Score- 5 minute: 9 Procedure Procedures: Cord Blood Collection Interventions Repair of Laceration Type: Perineal, Laceration Extension: First Degree. Sponge Count Correct: Yes, Sharp Count Correct: Yes.
[2022-09-07] MEDS: Dibucaine 1% 28 GM TUBE TP (11:47)
[2022-09-07] MEDS: Benzocaine 20% 60 ML CAN TP (11:47)
[2022-09-07] MEDS: Hamamelis Leaf/Glycerin 100 EACH BOX PR (11:48)
[2022-09-07] MEDS: Ibuprofen 600 MG TAB PO ×2 (11:48→20:08)
[2022-09-07] MEDS: Acetaminophen 325 MG TAB 650 MG PO ×2 (13:15→20:08)
[2022-09-07] MEDS: Docusate Sodium 100 MG CAP PO ×2 (13:15→20:08)
[2022-09-08 01:20] VITALS: BP 120/82; PULSE 78; RESP 16; TEMP 36.6; O2SAT 98
[2022-09-08] MEDS: Ibuprofen 600 MG TAB PO ×2 (01:36→08:00)
[2022-09-08] MEDS: Acetaminophen 325 MG TAB 650 MG PO ×2 (01:37→08:00)
[2022-09-08] MEDS: Docusate Sodium 100 MG CAP PO (08:00)
[2022-09-08 08:32] VITALS: BP 106/67; PULSE 84; RESP 16; TEMP 36.5
--- NOTE | 2022-09-08 09:51 | W.PM.OBPNV1 ---
Date of service: 09/08/22 Time of Service: 09:52 Assessment and Plan Assessment and plan (1) Term delivered: Status: Acute Assessment and plan: A: Nml PPD#1 going well Fluid filled blister over stretch raissa on RUQ abdomen (friction rub from EFM strap?) - pt noticed in shower today, no itch or pain, no redness or inflammation P: Observe blister, notify if more appear or if itching or discomfort begin F/up at 2 & 6 wks Pt declines BCM, Requesting discharge to home today Written instructions reviewed and given to pt Exam Physical Exam Vital signs: Temp Pulse Resp BP Pulse Ox 97.7 F 84 16 106/67 98 09/08/22 08:32 09/08/22 08:32 09/08/22 08:32 09/08/22 08:32 09/08/22 01:20 Vital Signs Reviewed: Yes Constitutional Constitutional: no acute distress, average body habitus and cooperative HEENT Exam HEENT Exam: Normal Neck Exam Neck Exam: Normal Breast Exam Bilateral: Breast Exam: Normal and Soft Nipple Exam: Normal and Uninjured Respiratory Exam Respiratory Exam: Normal Cardiovascular Exam Cardiovascular Exam: Normal Abdominal Exam Abdomen: Other (nontender and soft) Fundal Exam Fundus: Below Umbilicus and Firm Rectal Exam Rectal Exam: Normal Exam Perineum: Repair Intact Extremities Exam Extremity Exam: Normal, Full ROM and Warm to Touch Back/Spine/Pelvis Exam Back Exam: Normal Skin Exam Skin Exam: Normal Neurological Exam Neurological Exam: Normal Psychiatric Exam Psychiatric Exam: Normal
--- NOTE | 2022-09-08 09:59 | DSE_ITS ---
Date of service: 09/08/22 Time of Service: 09:59 DS: Diagnosis Discharge Diagnosis (1) Term delivered: Status: Acute Discharge Plan Disposition Patient Disposition: Home Condition: Good Discharge Details Reason For Visit: Early Labor Admit Date/Time: 09/06/22 21:38 Admit Provider: Sarah Sampson Attending Provider: Sarah Sampson Primary Care Provider: Inessa Isbell Hospital Course Hospital Course: Labor augmented, , pt requests discharge on first day Home Meds and New Rx's Prescriptions: No Action multivitamin tablet 1 tab PO DAILY ferrous sulfate 325 mg (65 mg iron) tablet 325 mg PO DAILY Qty: 60 2RF acetaminophen 500 mg Capsule 1,000 mg PO PRN PRN Discharge Instructions Additional Instructions: Please keep your 2 & 6 wk appointments with the dancing master, call for any and all concerns or questions. Stand Alone Forms: BC Instructions, BC Post Vaginal Deliver Activity:: Activity as Tolerated Equipment/Supplies:: No Equipment Needed Diet:: Normal Diet OB:DS Summary Summary Vaginal Delivery Method: Spontaneaous Episiotomy Description: None Laceration Description: Perineal Laceration Extension: First Degree Contraception Discussed Contraception Discussed: Yes (Natural Family Planning) Contraceptive Plan: Foam/Condoms, [place] Gender-Baby A: Female weight: 7 lb 9.166 oz Status at Discharge Functional status at discharge: independent ambulation Overall status at discharge: patient is progressing back to baseline Mental Status: mental status grossly normal Speech and Movement: speech and movement normal and speech clear Mood: congruent mood Affect: normal affect Exam Physical Exam Vital signs: Temp Pulse Resp BP Pulse Ox 97.7 F 84 16 106/67 98 09/08/22 08:32 09/08/22 08:32 09/08/22 08:32 09/08/22 08:32 09/08/22 01:20 Constitutional Constitutional: no acute distress, average body habitus and cooperative HEENT Exam HEENT Exam: Normal Neck Exam Neck Exam: Normal Breast Exam Bilateral: Breast Exam: Normal and Soft Respiratory Exam Respiratory Exam: Normal Cardiovascular Exam Cardiovascular Exam: Normal Abdominal Exam Abdomen: Other (nontender and soft) Fundal Exam Fundus: Below Umbilicus and Firm Rectal Exam Rectal Exam: Normal Exam Perineum: Repair Intact Extremities Exam Extremity Exam: Normal, Full ROM and Warm to Touch Back/Spine/Pelvis Exam Back Exam: Normal Skin Exam Skin Exam: Normal Neurological Exam Neurological Exam: Normal Psychiatric Exam Psychiatric Exam: Normal PFSH All Active Problems (Updated 09/08/22 @ 09:53 by Anayeli Spence) Term delivered (Acute) Sciatica (Chronic) Headache (Chronic) Medical History (Updated 09/08/22 @ 09:53 by Anayeli Spence) Acid reflux Carpal tunnel syndrome of right wrist Hemorrhoid History of gestational diabetes Keloid scar of skin Labor, prolonged latent phase Left flank pain Low lying placenta nos or without hemorrhage, second trimester Rectal fissure 12 weeks post Rh negative state in antepartum period Right carpal tunnel syndrome (08/18/15) surgery 2016 Size of fetus inconsistent with dates in third trimester Skin lesion Dry skin Spasm of muscle Tenosynovitis of wrist (08/18/15) Surgical History H/O wisdom tooth extraction Hx of carpal tunnel repair Family History Father Diabetes Brother Anxiety Paternal Uncle Bipolar disorder Autism Daughter Far-sighted Other Asthma Social History Smoking/Tobacco Use Status: Never Smoking risk assessment performed?: Yes Alcohol Intake: never Drug use: Never Substance use type: does not use Household members: spouse and children Housing: house Number of Children: 2 current occupation: Stay at home mom Sexually active: Yes Do you think of yourself as: straight/heterosexual Current gender identity: female Do you feel safe at home: Yes Do you feel safe in your relationship?: Yes Female Reproductive History Menstrual Age of Menarche: 14 control method: none History History 3 Para 2 Hx # Term Pregnancies 2 Multiple births 0 Hx # Pregnancies 0 Ectopic pregnancies 0 AB induced 0 Hx Number of Living Children 2 AB spontaneous 0 Past Pregnancies Del. Date GA/Weeks # Preg Succ Route Wgt Sex Labor Lgth Anesth esia Location [facility] 07/12/18 38 No vaginal 6 lb 12 oz Female 6 hrs Ane renata Capps CNM 07/29/20 39 No vaginal 6 lb 10 oz Male 9 h 17m Terell Sampson CNM Delivery Date: 07/12/18 Last Updated by: Sarah Abarca CNM Stage 3 7 min.; 2nd degree perineal laceration repaired. Nilsa. positive GBS Delivery Date: 07/29/20 Last Updated by: Sarah Sampson CNM [place] water DS: Data Vitals/I&O Vitals and I&O: Vital Signs Temperature 97.7 F 09/08/22 08:32 Temperature Source Oral 09/08/22 08:32 Pulse 84 09/08/22 08:32 Pulse Rhythm Regular 09/08/22 08:32 Respiratory Rate 16 09/08/22 08:32 Respiratory Depth Normal 09/08/22 08:32 Blood Pressure 106/67 09/08/22 08:32 Blood Pressure Mean 80 09/08/22 08:32 Pulse Oximetry 98 09/08/22 01:20 Pain Level 5 09/07/22 13:15 Intake & Output 09/07/22 09/07/22 09/08/22 11:59 23:59 11:59 Intake Total 143.383 / 393.383 250 / 691.786 8774.617 / 1356.617 Output Total 1650 / 2300 650 / 2300 Balance -1506.617 / -1906.617 -400 / -1586.649 8291.617 / 1356.617 Intake: IV 143.383 / 396.116 6950.617 / 1356.617 Oral 250 / 250 Output: Urine 1300 / 1950 650 / 1950 Blood 350 / 350 Other: Urine Color Yellow Yellow Urine Appearance Clear Urine Odor None Voiding Methods Toilet Data Completed and Pending Labs on day of discharge: Labs from last 24 hours 09/08/22 09/06/22 08:40 22:00 Screen Pending Rhogam Unit Number [id number] Unit Expiration Date 03/31/23 Product Lot # [id number]
== END 2022-09-08 12:00 | disposition home or self-care (01) | DRG 806 ==
LOC: BCD 21:50 → OBS 21:50
PROVIDERS: Admitting Provider Advanced Practice Midwife; PCP Internal Medicine; Visit Provider Advanced Practice Midwife
DX: O36.5930 Maternal care for other known or suspected poor fetal growth, third trimester, not applicable or unspecified (principal); O36.0930 Maternal care for other rhesus isoimmunization, third trimester, not applicable or unspecified; Z37.0 Single live birth; O44.43 Low lying placenta NOS or without hemorrhage, third trimester; O63.0 Prolonged first stage (of labor); O70.0 First degree perineal laceration during delivery; Z3A.39 39 weeks gestation of pregnancy; M54.32 Sciatica, left side; R51.9 Headache, unspecified; K21.9 Gastro-esophageal reflux disease without esophagitis; O75.89 Other specified complications of labor and delivery; O99.62 Diseases of the digestive system complicating childbirth; O69.81X0 Labor and delivery complicated by cord around neck, without compression, not applicable or unspecified; S30.821A Blister (nonthermal) of abdominal wall, initial encounter; W22.8XXA Striking against or struck by other objects, initial encounter
CPT/HCPCS: 36415; 85027; 85461; 86850; 86900; 86901; 90384; 86870; J2790

== ENCOUNTER 2023-06-27 10:11 | Outpatient (REF) | payer MEDICAID, SELFPAY | END 2023-06-27 10:12 | disposition home or self-care (01) | LOC: LBN 10:11 | PROVIDERS: PCP Internal Medicine; Visit Provider Advanced Practice Midwife | DX: N89.8 Other specified noninflammatory disorders of vagina (principal); Z01.419 Encounter for gynecological examination (general) (routine) without abnormal findings; B96.89 Other specified bacterial agents as the cause of diseases classified elsewhere | CPT/HCPCS: 87480; 87510; 87660 ==

== ENCOUNTER 2023-10-31 02:56 | Outpatient (CLI) | payer MEDICAID, SELFPAY ==
[2023-10-31 12:20] LABS: HCT 40.1 % (36.0-46.0); HGB 12.8 g/dL (11.2-15.7); MCH 28.1 pg (27.0-33.0); MCHC 31.9 % (32.0-36.0); MCV 88 fL (80-95); MPV 9.9 fL (8.0-11.0); Platelet Count 257 10^3/uL (130-400); RBC 4.55 10^6/uL (3.93-5.22); RDW-SD 42.1 fL
== END 2023-10-31 02:57 | disposition home or self-care (01) ==
LOC: LBO 02:56
PROVIDERS: PCP Internal Medicine; Visit Provider Advanced Practice Midwife
DX: R53.83 Other fatigue (principal)
CPT/HCPCS: 36415; 85027

== ENCOUNTER 2024-03-03 02:21 | Outpatient (CLI) | payer MEDICAID, SELFPAY ==
[2024-03-03 14:29] LABS: Panorama Kit Sent via Fed Ex
[2024-03-03 14:35] LABS: Abs Immature Grans 0.03 10^3/uL (0.0-0.06); Absolute Basophil Count 0.01 10^3/uL (0.0-0.2); Absolute Eosinophil Count 0.07 10^3/uL (0.0-0.7); Absolute Monocyte Count 0.36 10^3/uL (0.1-0.8); Absolute Neutrophil Count 5.37 10^3/uL (1.2-6.7); Basophils % 0.1 %; Eosinophils % 0.9 %; HCT 36.5 % (36.0-46.0); HGB 12.7 g/dL (11.2-15.7); Immature Grans % 0.4 %; Lymphocytes % 25.5 %; MCHC 34.8 % (32.0-36.0); MCV 86 fL (80-95); MPV 10.1 fL (8.0-11.0); Monocytes % 4.6 %; Neutrophils % 68.5 %; Platelet Count 257 10^3/uL (130-400); RBC 4.24 10^6/uL (3.93-5.22); RDW 13.2 % (11.7-14.6); RDW-SD 41.1 fL; WBC 7.84 10^3/uL (4.4-10.8)
[2024-03-03 14:42] LABS: Glucose,1 Hr (Glucola) 121 mg/dL (80-140)
[2024-03-04 10:59] LABS: Hepatitis B Surface Ag Negative (Negative)
[2024-03-04 11:09] LABS: Rubella IgG Ab (UVM) Positive (See Note); Varicella IgG Antibody Positive (See Note)
[2024-03-04 12:02] LABS: HIV-1/2 Ag & Ab Screen Negative (Negative)
[2024-03-04 12:28] LABS: Hepatitis C Ab w Rflx HCV PCR Negative (Negative)
[2024-03-06 15:16] LABS: Syphilis IgG w/Reflex Nonreactive (Nonreactive)
== END 2024-03-03 02:22 | disposition home or self-care (01) ==
LOC: LBO 02:21
PROVIDERS: Advanced Practice Midwife; Visit Provider Advanced Practice Midwife
DX: Z34.91 Encounter for supervision of normal pregnancy, unspecified, first trimester (principal)
CPT/HCPCS: 36415; 82950; 86787; 86803; 86850; 86900; 86901; 87340; 87389; 85025; 86762; 86780

== ENCOUNTER 2024-03-03 14:29 | Outpatient (REF) | payer MEDICAID, SELFPAY ==
[2024-03-04 12:19] LABS: Chlamydia Result Negative (Negative); GC Result Negative (Negative)
== END 2024-03-03 14:30 | disposition home or self-care (01) ==
LOC: LBN 14:29
PROVIDERS: Visit Provider Advanced Practice Midwife
DX: Z34.91 Encounter for supervision of normal pregnancy, unspecified, first trimester (principal)
CPT/HCPCS: 87491; 87591; 87086

== ENCOUNTER 2024-04-30 01:28 | Outpatient (CLI) | payer MEDICAID, SELFPAY ==
--- NOTE | 2024-04-30 07:30 | DI.US_ITS ---
Exam(s) US OB 2-3 TRIMESTER EXAM: US OB 2-3 TRIMESTER CLINICAL HISTORY: ,Z34.90. TECHNIQUE: Transabdominal obstetrical ultrasound performed. COMPARISON: US US OB JIMMY WEIGHT from 08/18/2022 FINDINGS: Number of fetuses: 1 position: VARIED heart rate: 151bpm Placental location: There is a grade 1 fundal placenta. The placental tip is 7 cm from the internal os. The placental cord insertion site is 5 cm from the placental edge. No evidence of previa. Amniotic fluid index: Amount of fluid is within normal limits. ANATOMICAL SURVEY: Within normal limits. BIOMETRIC DATA: BPD: 4.74cm, 20weeks 2days HC: 18.3cm, 20weeks 5days AC: 16.85cm, 21weeks 6days FL: 3.41cm, 20weeks 5days Cisterna magna: 3.8mm Cerebellum: 1.99cm Lateral ventricle: 0.6 EFW: 408.72g, 0.91lb, 57.6% Composite Age: 20weeks 6days CASA: 09/11/2024 Heart Rate: 151bpm ANATOMICAL SURVEY: Four-chambered heart: Unremarkable. RVOT: Unremarkable. LVOT: Unremarkable. Left-sided stomach: Unremarkable. urinary bladder: Unremarkable. Bilateral kidneys: Unremarkable. Three-vessel cord: Unremarkable. Cord insertion: Unremarkable. Posterior fossa: Unremarkable. ventricles: Unremarkable. nose/lips: Unremarkable. Palate: Unremarkable. spine: Unremarkable. Two arms and two legs: Unremarkable. IMPRESSION: 1. Single live intrauterine gestation as above. 2. Normal anatomic survey. DATA REPOSITORY:
== END 2024-04-30 01:48 ==
LOC: DI 01:28
PROVIDERS: Visit Provider Advanced Practice Midwife
DX: Z34.92 Encounter for supervision of normal pregnancy, unspecified, second trimester (principal); Z3A.21 21 weeks gestation of pregnancy
CPT/HCPCS: 76805

== ENCOUNTER 2024-05-20 19:04 | Emergency (ER) | payer MEDICAID, SELFPAY ==
[2024-05-20 19:06] VITALS: BP 115/78; PULSE 105; RESP 18; TEMP 36.4; O2SAT 99
--- NOTE | 2024-05-20 19:27 | W.ED.GENAD ---
Discharge Plan Disposition Patient Disposition: Home Condition: Stable Discharge Details Clinical Impression: Foreign body (FB) in soft tissue Primary Care Provider: Unknown,Unknown ED Provider: Ijeoma Parra Home Meds and New Rx's Prescriptions: No Action multivitamin tablet 1 tab PO DAILY folic acid 0.8 mg capsule 0.8 mg PO DAILY Qty: 60 4RF cholecalciferol (vitamin D3) 50 mcg (2,000 unit) capsule 50 mcg PO DAILY Qty: 60 5RF acetaminophen 500 mg Capsule 1,000 mg PO PRN PRN Discharge Instructions Instructions: Foreign Body in Skin Additional Instructions: Large splinter removed. No indication for antibiotics. Keep the wound clean with soap and water. Might be sore, so take some Tylenol or apply ice pack to the area HPI General Date/Time Provider Initiated Documentation: 05/20/24 19:15. Limitations to Documentation: no limitations. Information obtained by: patient. HPI Narrative: 33-year-old female currently G4, P3 at 25 weeks presents for evaluation of a foreign body in her left buttock. She reports that she was sitting on the floor and slid when the wood floor ripped her pants and she got a sliver into her bottom. She reports that she tried to get it out but she was not able to find it. Related Data Home Medications ?Medication ?Instructions ?Recorded ?Confirmed multivitamin 1 tab PO DAILY 07/29/18 05/20/24 acetaminophen 500 mg capsule 1,000 mg PO PRN PRN 02/28/22 05/20/24 cholecalciferol (vitamin D3) 50 50 mcg PO DAILY #60 caps 06/27/23 05/20/24 mcg (2,000 unit) capsule folic acid 0.8 mg capsule 0.8 mg PO DAILY #60 caps 06/27/23 05/20/24 Previous Rx's ?Medication ?Instructions ?Recorded cholecalciferol (vitamin D3) 50 50 mcg PO DAILY #60 caps 06/27/23 mcg (2,000 unit) capsule folic acid 0.8 mg capsule 0.8 mg PO DAILY #60 caps 06/27/23 Allergies Allergy/AdvReac Type Severity Reaction Status Date / Time Bleach (Sodium Hypochlorite) Allergy Runny nose Verified 05/20/24 19:14 General Stated Complaint: ForeignBody SAMANTA: 3 Exam Narrative Exam Narrative: Review of Systems: All systems reviewed & are unremarkable except as noted in HPI and below Well-developed, no acute distress NCAT Unlabored respiratory effort Left buttock with a superficial abrasion small area that feels like a palpable foreign body just under the skin Course Vital Signs Vital signs: Vital Signs Temperature 36.4 C 05/20/24 19:06 Pulse 105 H 05/20/24 19:06 Respiratory Rate 18 05/20/24 19:06 Blood Pressure 115/78 05/20/24 19:06 Pulse Oximetry 99 05/20/24 19:06 Temperature 36.4 C 05/20/24 19:06 Pulse 105 H 05/20/24 19:06 Respiratory Rate 18 05/20/24 19:06 Blood Pressure 115/78 05/20/24 19:06 Blood Pressure Position Sitting 05/20/24 19:06 Pulse Oximetry 99 05/20/24 19:06 Oxygen Delivery Method Room Air 05/20/24 19:06 Oxygen Flow Rate 0 05/20/24 19:06 Pain Level 3 05/20/24 19:06 Procedure Foreign Body Removal Location of procedure: Buttocks/left side Indication: History of foreign body. Confirmed by: direct visualization, patient report and palpation. Sterility: Non Sterile. Local anesthetic: other anesthetic (EMLA Cream, freeze spray ). Technique: Manual removal and Removal with forceps. Outcome: Sucessful. Procedure Description/Note: Removed 2cm wooden FB's Medical Decision Making Emergent evaluation of foreign body. Likely a sliver of wood. Numbing cream applied and with the use of direct visualization and freezing spray, I was able to remove the foreign body intact. Recommend local wound care and pain control as needed Quality:SDOH Health Related Social Needs: No Data to Display PFSH All Active Problems (Updated 05/20/24 @ 20:09 by Ijeoma Parra MD) Foreign body (FB) in soft tissue (Acute) History of gestational diabetes (Acute) Rh negative state in antepartum period (Acute) (Acute) Fatigue (Acute) Lactating mother (Acute) Sciatica (Chronic) Headache (Chronic) Medical History (Updated 05/20/24 @ 20:09 by Ijeoma Parra MD) Mastitis Flank pain History of kidney stones Size of fetus inconsistent with dates in third trimester Left flank pain Low lying placenta nos or without hemorrhage, second trimester Keloid scar of skin Hemorrhoid Acid reflux Carpal tunnel syndrome of right wrist relieved with surgery Skin lesion Dry skin Tenosynovitis of wrist (08/18/15) Right carpal tunnel syndrome (08/18/15) surgery 2016 Surgical History Hx of carpal tunnel repair H/O wisdom tooth extraction Family History (Updated 03/03/24 @ 13:15 by Sarah Abarca CNM) Father Diabetes Type 1 Asthma Heart disease Brother Anxiety Asthma ADHD Paternal Uncle Bipolar disorder Autism Asthma Daughter Far-sighted Paternal Cousin Bipolar disorder Social History Smoking/Tobacco Use Status: Never Smoking risk assessment performed?: Yes Alcohol Intake: never Drug use: Never Substance use type: does not use Household members: spouse and children Housing: house Number of Children: 2 current occupation: Stay at home mom Sexually active: Yes Do you think of yourself as: straight/heterosexual Current gender identity: female Do you feel safe at home: Yes Do you feel safe in your relationship?: Yes Female Reproductive History Menstrual Age of Menarche: 14 control method: none History History 4 Para 3 Hx # Term Pregnancies 3 Multiple births 0 Hx # Pregnancies 0 Ectopic pregnancies 0 AB induced 0 Hx Number of Living Children 3 AB spontaneous 0 Past Pregnancies Del. Date GA/Weeks # Preg Succ Route Wgt Sex Labor Lgth Anesthesia Location [facility] 07/12/18 38 No vaginal 3061.748 g Female 6 hrs Jean-Pierre Capps CNM 07/29/20 39 No vaginal 3005.049 g Male 9 h 17m Adelaida Sampson CNM 09/07/22 39 No Yes vaginal 3435.962 g Female 26 hrs regional NISH [place] Delivery Date: 07/12/18 Last Updated by: Sarah Abarca CNM Stage 3 7 min.; 2nd degree perineal laceration repaired. Nilsa. positive GBS Delivery Date: 07/29/20 Last Updated by: Sarah Sampson CNM [place] Delivery Date: 09/07/22 Last Updated by: NISH Burton Pitocin augmentation at 6 cms. Rapid second stage.
[2024-05-20] MEDS: Lidocaine 4% Cream 5 GM TUBE TP (19:33)
[2024-05-20 20:20] VITALS: BP 120/80; PULSE 98; RESP 16; O2SAT 98
== END 2024-05-20 20:20 | disposition home or self-care (01) ==
PROVIDERS: Emergency Provider Emergency Medicine
DX: S30.850A Superficial foreign body of lower back and pelvis, initial encounter (principal); O26.892 Other specified pregnancy related conditions, second trimester; Z3A.25 25 weeks gestation of pregnancy; W45.8XXA Other foreign body or object entering through skin, initial encounter; Y93.89 Activity, other specified; Y92.018 Other place in single-family (private) house as the place of occurrence of the external cause
CPT/HCPCS: 99283

== ENCOUNTER 2024-06-13 19:08 | Observation (INO) | payer MEDICAID, SELFPAY ==
[2024-06-13 16:43] VITALS: BP 115/62; PULSE 98; TEMP 36.4
[2024-06-13 16:45] VITALS: BP 115/62; PULSE 98
[2024-06-13 17:08] LABS: Bilirubin Negative (Negative); Blood Moderate (Negative); Clarity Clear (Clear); Glucose 250 mg/dL (Negative); Ketones Negative (Negative); Leukocyte Esterase Negative (Negative); Nitrite Negative (Negative); Specific Gravity 1.015 (1.005-1.025); Urobilinogen 0.2 mg/dL (Up to 0.2)
[2024-06-13 17:18] LABS: Bacteria Few HPF (Negative); C & S Indicated? No; Casts Negative LPF (Negative); Crystals Moderate Amorphous HPF (Negative); Epithelial Cells Rare HPF (Negative); Mucus Negative (Negative); WBC 0-2 HPF (0-5)
[2024-06-13] MEDS: Lactated Ringers 1,000 ML 150 ML IV (17:25)
--- NOTE | 2024-06-13 17:40 | W.OBNST ---
Date of service: 06/13/24 Time of Service: 19:10 NST Evaluation Reason for NST Reasons for Nonstress Test: OTHER, SEE COMMENT Reason for NST Other: flank pain Gestational Age Gestational Age in Weeks and Days: 27 Weeks and 2Days Test and Monitor Explained Test/Monitor Explained: Test Explained, Monitor Explained and Patient Verbalized Understanding Vital Signs Blood Pressure: 115/62 Pulse: 98 Temperature: 97.5 F Urine Results Urine Protein: Negative Urine Ketones: Negative Urine Glucose: Negative Urine Blood: Positive NST Information Date on Monitor: 06/13/24 Time on Monitor: 16:42 Date off Monitor: 06/13/24 Time off Monitor: 18:00 Total Time on Monitor: 78 NST Interventions: PO Hydration Contraction Frequency: 0 NST Evaluation Patient States Movement: Present FHR Baseline: 150 Variability: Moderate 6-25 bpm Accelerations: 10x10 Decelerations: None NST Results: Reactive Note Ultrasound Done: N/A. NST Note NST Reviewed and Verified by: Anayeli Spence
[2024-06-13 17:45] LABS: Abs Immature Grans 0.08 10^3/uL (0.0-0.06); Absolute Basophil Count 0.01 10^3/uL (0.0-0.2); Absolute Eosinophil Count 0.03 10^3/uL (0.0-0.7); Absolute Monocyte Count 0.46 10^3/uL (0.1-0.8); Absolute Neutrophil Count 7.87 10^3/uL (1.2-6.7); Basophils % 0.1 %; Eosinophils % 0.3 %; HCT 34.6 % (36.0-46.0); HGB 11.2 g/dL (11.2-15.7); Immature Grans % 0.8 %; Lymphocytes % 16.7 %; MCH 29.4 pg (27.0-33.0); MCHC 32.4 % (32.0-36.0); MCV 91 fL (80-95); MPV 9.9 fL (8.0-11.0); Monocytes % 4.5 %; Neutrophils % 77.6 %; Platelet Count 188 10^3/uL (130-400); RBC 3.81 10^6/uL (3.93-5.22); RDW 13.3 % (11.7-14.6); RDW-SD 43.7 fL; WBC 10.15 10^3/uL (4.4-10.8)
[2024-06-13] MEDS: Ondansetron 4 MG/2 ML VIAL IVP (17:46)
[2024-06-13 17:57] LABS: ALT 15 U/L (14-59); AST 12 U/L (15-37); Alkaline Phosphatase 77 U/L (46-116); Amylase 61 U/L (25-115); Anion Gap 8.6 mmol/L (3-11); BUN 10 mg/dL (7-18); Bilirubin, Total 0.2 mg/dL (0.2-1.0); CO2 25.4 mmol/L (21.0-32.0); CREATININE 0.5 mg/dL (0.55-1.02); Chloride 104 mmol/L (98-107); Estimated GFR 128.52 (mL/min/1.73m2); Glucose 106 mg/dL (74-106); Potassium 3.7 mmol/L (3.5-5.1); Sodium 138 mmol/L (136-145); Total Protein 6.6 g/dL (6.4-8.2)
[2024-06-13] MEDS: HYDROmorphone 2 MG/ML SYR 1 MG IVP (17:58)
[2024-06-13 18:06] LABS: Uric Acid 3.4 mg/dL (2.6-6.0)
[2024-06-13 19:11] VITALS: BP 115/62; PULSE 98; TEMP 36.4
--- NOTE | 2024-06-13 19:11 | HPE_ITS ---
Date of service: 06/13/24 Time of Service: 19:11 Assessment and Plan Assessment and plan (1) Acute left flank pain: Status: Acute Assessment and plan: A: 33 yo @ 27+2 wks, benign AP course thus far, no labor, reactive NST Left flank pain, nausea, hematuria on UA, CBC and CMP nml r/o nephrolithiasis vs hydronephrosis and renal colic P: IVF LR 150 ml/hr infusing, Zofran 4 mg IV, Dilaudid 1 mg IV Will repeat Dilaudid prn q2 hrs, Zofran prn q6 hrs Discussed pt status with Dr. North, will start Flomax 400 mcg qd PO presumptively Renal ultrasound ordered however no lens coating technician is available this evening PO intake as tolerated, urine C&S pending Pt advised to stay overnight for pain and nausea control as well as hydration, Will strain urine q void, attempt to obtain renal ultrasound scan tomorrow. (2) Hx of hydronephrosis: Status: Acute Assessment and plan: Previous pt was seen for symptoms consistent with left hydronephrosis at 30 wks. No confirmatory ultrasound on record (3) 27 weeks gestation of : Status: Acute History of Present Illness History of Present Illness Chief Complaint: Left low back and flank pain radiating into LLQ Narrative: Pt reports feeling increasingly uncomfortable all day, low and mid back pain on left side that did not improve with taking tylenol, pain occasionally moving into LLQ and suprapubic area. Upon arrival to unit pain suddenly increased and was accompanied by nausea, pt crying and unable to move well in the bed. Review of Systems Narrative: ROS completed and noncontributory other than history or presumed left hydronephrosis 2 yrs ago during previous PFSH All Active Problems (Updated 06/13/24 @ 19:20 by Anayeli Spence) 27 weeks gestation of (Acute) Hx of hydronephrosis (Acute) Acute left flank pain (Acute) History of gestational diabetes (Acute) Rh negative state in antepartum period (Acute) (Acute) Fatigue (Acute) Lactating mother (Acute) Sciatica (Chronic) Headache (Chronic) Medical History (Updated 06/13/24 @ 19:20 by Anayeli Spence) Foreign body (FB) in soft tissue Mastitis Flank pain History of kidney stones Size of fetus inconsistent with dates in third trimester Left flank pain Low lying placenta nos or without hemorrhage, second trimester Keloid scar of skin Hemorrhoid Acid reflux Carpal tunnel syndrome of right wrist relieved with surgery Skin lesion Dry skin Tenosynovitis of wrist (08/18/15) Right carpal tunnel syndrome (08/18/15) surgery 2016 Surgical History Hx of carpal tunnel repair H/O wisdom tooth extraction Family History (Updated 03/03/24 @ 13:15 by Sarah Abarca CNM) Father Diabetes Type 1 Asthma Heart disease Brother Anxiety Asthma ADHD Paternal Uncle Bipolar disorder Autism Asthma Daughter Far-sighted Paternal Cousin Bipolar disorder Social History Smoking/Tobacco Use Status: Never Smoking risk assessment performed?: Yes Alcohol Intake: never Drug use: Never Substance use type: does not use Household members: spouse and children Housing: house Number of Children: 2 current occupation: Stay at home mom Sexually active: Yes Do you think of yourself as: straight/heterosexual Current gender identity: female Do you feel safe at home: Yes Do you feel safe in your relationship?: Yes Female Reproductive History Menstrual Age of Menarche: 14 control method: none History History 2 4 Para 3 Hx # Term Pregnancies 3 Multiple births 0 Hx # Pregnancies 0 Ectopic pregnancies 0 AB induced 0 Hx Number of Living Children 3 AB spontaneous 0 Past Pregnancies Del. Date GA/Weeks # Preg Succ Route Wgt Sex Labor Lgth Anesth esia Location [facility] 07/12/18 38 No vaginal 6 lb 12 oz Female 6 hrs Ane reanta Capps CNM 07/29/20 39 No vaginal 6 lb 10 oz Male 9 h 17m Terell Sampson CNM 09/07/22 39 No Yes vaginal 7 lb 9.2 oz Female 26 hrs regional NISH [place] Delivery Date: 07/12/18 Last Updated by: Sarah Abarca CNM Stage 3 7 min.; 2nd degree perineal laceration repaired. Nilsa. positive GBS Delivery Date: 07/29/20 Last Updated by: Sarah Sampson CNM [place] water Delivery Date: 09/07/22 Last Updated by: NISH Burton Pitocin augmentation at 6 cms. Rapid second stage. Meds Allergies and Home Medications Allergies Allergy/AdvReac Type Severity Reaction Status Date / Time Bleach (Sodium Hypochlorite) Allergy Runny nose Verified 05/28/24 13:02 Home Medications ?Medication ?Instructions ?Recorded ?Confirmed ?Type multivitamin 1 tab PO DAILY 07/29/18 05/28/24 History acetaminophen 500 mg capsule 1,000 mg PO PRN PRN 02/28/22 05/28/24 History cholecalciferol (vitamin D3) 50 50 mcg PO DAILY #60 caps 06/27/23 05/28/24 Rx mcg (2,000 unit) capsule folic acid 0.8 mg capsule 0.8 mg PO DAILY #60 caps 06/27/23 05/28/24 Rx Exam Const General: cooperative, healthy appearing and acute distress Nutritional Appearance: average body habitus and well nourished Orientation: alert, awake and oriented x3 Resp Effort & Inspection: normal respiratory effort and able to speak in complete sentences Cardio Rate: regular rate Rhythm: regular rhythm GI Inspection: normal to inspection Palpation: soft External Female Exam: normal external appearance Other: Cvx closed, thick, firm, no presenting parts in pelvis Back/Spine/Pelvis Back: no CVA tenderness Skin General skin exam: no rashes or lesions noted and elasticity normal Neuro General: patient alert and patient awake Extrem General: normal to inspection, full ROM and normal gait Psych Affect: normal affect Attitude: cooperative Thought Process: normal Thought Content: normal Other: distressed, crying, in position lying on right side Results Imaging US - kidney/bladder: other (ordered, lens coating technician not available) Labs 06/13/24 17:35 06/13/24 17:35 Labs: Laboratory Results - last 24 hr 06/13/24 06/13/24 16:39 17:35 WBC 10.15 RBC 3.81 L Hgb 11.2 Hct 34.6 L MCV 91 MCH 29.4 MCHC 32.4 RDW 13.3 Plt Count 188 MPV 9.9 Immature Gran % 0.8 Neutrophils % 77.6 Lymphocytes % 16.7 Monocytes % 4.5 Eosinophils % 0.3 Basophils % 0.1 Nucleated RBC % 0.0 Absolute Neutrophils 7.87 H Absolute Lymphocytes 1.70 Absolute Monocytes 0.46 Absolute Eosinophils 0.03 Absolute Basophils 0.01 Sodium 138 Potassium 3.7 Chloride 104 Carbon Dioxide 25.4 Anion Gap 8.6 BUN 10 Creatinine 0.5 L Est GFR (CKD-EPI 2020) 128.52 Glucose 106 Uric Acid 3.4 Calcium 9.0 Total Bilirubin 0.2 AST 12 L ALT 15 Alkaline Phosphatase 77 Total Protein 6.6 Albumin 3.0 L Amylase 61 Urine Color Yellow Urine Clarity Clear Urine pH 7.0 Ur Specific [place] 1.015 Urine Protein Negative Urine Ketones Negative Urine Blood Moderate H Urine Nitrite Negative Urine Bilirubin Negative Urine Urobilinogen 0.2 Ur Leukocyte Esterase Negative Urine RBC 10-20 H Urine WBC 0-2 Ur Epithelial Cells Rare Urine Crystals Moderate Amorphous Urine Bacteria Few Urine Casts Negative Urine Mucus Negative Ur Culture Indicated? No Urine Glucose 250 H Last Vital Signs Pulse 98 H 06/13/24 16:45 BP 115/62 06/13/24 16:45 Time Spent Time spent with Patient: 40-54 minutes Time was spent: preparing to see the patient(eg.review tests), obtaining and/or reviewing separately [facility] hiistory, ordering medications,tests, procedures, referring, communicating with other health day care supervisor, indepentently interpreting results and counseling the patient
[2024-06-13] MEDS: Tamsulosin 0.4 MG CAPCR PO (19:34)
--- NOTE | 2024-06-13 20:47 | PGE_ITS ---
Date of Service Date of service: 06/13/24 Time of Service: 20:47 Assessment and Plan Assessment and plan (1) Acute left flank pain: Assessment and plan: A: Nausea and pain resolved with passage of small stone (0.5 cm) and calcium sediment P: Pt desires to go home Will plan f/up phone call tomorrow and f/up with OB Provider as scheduled Importance of pushing PO fluid intake for hydration and diluted urine di scussed Warning signs reviewed with pt Subjective Subjective Interval history since last seen: Pt began to feel less pain and nausea, up to void using strainer which caught several tiny white calcifications and a small hard stone. Now desires discharge to home. Exam Const General: cooperative, healthy appearing and comfortable GI Other: Gravid, S=D @ 27 wks Objective vital signs stable, afebrile, normotensive obstetrically stable Reviewed Pertinent PMH: Yes Time Spent with Patient Time Spent with Patient: 25-34 minutes Time was spent: obtaining and/or reviewing separately otained hiistory, indepentently interpreting results and counseling the patient
--- NOTE | 2024-06-13 21:05 | W.PM.OBDISCH ---
Date of service: 06/13/24 Time of Service: 21:05 DS: Diagnosis Discharge Diagnosis (1) Acute left flank pain: (2) Kidney stone on left side: Status: Acute Discharge Plan Disposition Patient Disposition: Home Condition: Improving Discharge Details Reason For Visit: NST Admit Date/Time: 06/13/24 19:08 Admit Provider: Anayeli Spence Attending Provider: Anayeli Spence Primary Care Provider: Unknown,Unknown Hospital Course Hospital Course: Outpt observation for 3-4 hrs during which pt received IVF, pain and anti-nausea medication, urine strained and multiple small white calcifications found in strainer, pt reports relief from pain and desires discharge to home. Home Meds and New Rx's Prescriptions: No Action multivitamin tablet 1 tab PO DAILY folic acid 0.8 mg capsule 0.8 mg PO DAILY Qty: 60 4RF cholecalciferol (vitamin D3) 50 mcg (2,000 unit) capsule 50 mcg PO DAILY Qty: 60 5RF acetaminophen 500 mg Capsule 1,000 mg PO PRN PRN Discharge Instructions Stand Alone Forms: Center Observation Activity:: Activity as Tolerated Equipment/Supplies:: No Equipment Needed Diet:: As Tolerated Discharge Orders Discharge Orders: Discharge Order (Routine); Ordered 06/13/24 Ordered By: Anayeli Spence Discharge Data Discharge Date/Time-TO BE ENTERED AT DEPARTURE: 06/13/24 20:48 OB:DS Summary Contraception Discussed Contraception Discussed: No, Status at Discharge Functional status at discharge: independent ambulation Overall status at discharge: patient is back to baseline Mental Status: mental status grossly normal Speech and Movement: speech and movement normal and speech clear Mood: congruent mood Affect: normal affect Quality:SDOH Health Related Social Needs: No Data to Display Exam Physical Exam Vital signs: Pulse BP 98 H 115/62 06/13/24 16:45 06/13/24 16:45 Additional findings Additional findings: Pt reports feeling increasingly uncomfortable all day, low and mid back pain on left side that did not improve with taking tylenol, pain occasionally moving into LLQ and suprapubic area. Upon arrival to unit pain suddenly increased and was accompanied by nausea, pt crying and unable to move well in the bed. PFSH All Active Problems (Updated 06/13/24 @ 21:02 by Anayeli Spence) Kidney stone on left side (Acute) History of gestational diabetes (Acute) Rh negative state in antepartum period (Acute) (Acute) Fatigue (Acute) Lactating mother (Acute) Sciatica (Chronic) Headache (Chronic) Medical History (Updated 06/13/24 @ 21:02 by Anayeli Spence) Acute left flank pain Hx of hydronephrosis 27 weeks gestation of Foreign body (FB) in soft tissue Mastitis Flank pain History of kidney stones Size of fetus inconsistent with dates in third trimester Left flank pain Low lying placenta nos or without hemorrhage, second trimester Keloid scar of skin Hemorrhoid Acid reflux Carpal tunnel syndrome of right wrist relieved with surgery Skin lesion Dry skin Tenosynovitis of wrist (08/18/15) Right carpal tunnel syndrome (08/18/15) surgery 2016 Surgical History Hx of carpal tunnel repair H/O wisdom tooth extraction Family History (Updated 03/03/24 @ 13:15 by Sarah Abarca CNM) Father Diabetes Type 1 Asthma Heart disease Brother Anxiety Asthma ADHD Paternal Uncle Bipolar disorder Autism Asthma Daughter Far-sighted Paternal Cousin Bipolar disorder Social History Smoking/Tobacco Use Status: Never Smoking risk assessment performed?: Yes Alcohol Intake: never Drug use: Never Substance use type: does not use Household members: spouse and children Housing: house Number of Children: 2 current occupation: Stay at home mom Sexually active: Yes Do you think of yourself as: straight/heterosexual Current gender identity: female Do you feel safe at home: Yes Do you feel safe in your relationship?: Yes Female Reproductive History Menstrual Age of Menarche: 14 control method: none History History 4 Para 3 Hx # Term Pregnancies 3 Multiple births 0 Hx # Pregnancies 0 Ectopic pregnancies 0 AB induced 0 Hx Number of Living Children 3 AB spontaneous 0 Past Pregnancies Del. Date GA/Weeks # Preg Succ Route Wgt Sex Labor Lgth Anesthesia Location Prov Complic 07/12/18 38 No vaginal 6 lb 12 oz Female 6 hrs Jean-Pierre Capps CNM 07/29/20 39 No vaginal 6 lb 10 oz Male 9 h 17m Adelaida Sampson CNM 09/07/22 39 No Yes vaginal 7 lb 9.2 oz Female 26 hrs regional [facility] Delivery Date: 07/12/18 Last Updated by: Sarah Abarca CNM Stage 3 7 min.; 2nd degree perineal laceration repaired. Nilsa. positive GBS Delivery Date: 07/29/20 Last Updated by: Sarah Sampson CNM Kuldip water Delivery Date: 09/07/22 Last Updated by: Sarah Abarca CNM Radha Clementina Pitocin augmentation at 6 cms. Rapid second stage. DS: Data Vitals/I&O Vitals and I&O: Vital Signs Temperature 97.5 F 06/13/24 19:11 Pulse 98 H 06/13/24 16:45 Pulse 98 06/13/24 19:11 Blood Pressure 115/62 06/13/24 16:45 Blood Pressure 115/62 06/13/24 19:11 Intake & Output 06/12/24 06/13/24 06/13/24 23:59 11:59 23:59 Intake Total Balance Intake: IV Data Completed and Pending Labs on day of discharge: Labs from last 24 hours 06/13/24 06/13/24 17:35 16:39 WBC 10.15 RBC 3.81 L Hgb 11.2 Hct 34.6 L MCV 91 MCH 29.4 MCHC 32.4 RDW 13.3 Plt Count 188 MPV 9.9 Immature Gran % 0.8 Neutrophils % 77.6 Lymphocytes % 16.7 Monocytes % 4.5 Eosinophils % 0.3 Basophils % 0.1 Nucleated RBC % 0.0 Absolute Neutrophils 7.87 H Absolute Lymphocytes 1.70 Absolute Monocytes 0.46 Absolute Eosinophils 0.03 Absolute Basophils 0.01 Sodium 138 Potassium 3.7 Chloride 104 Carbon Dioxide 25.4 Anion Gap 8.6 BUN 10 Creatinine 0.5 L Est GFR (CKD-EPI 2020) 128.52 Glucose 106 Uric Acid 3.4 Calcium 9.0 Total Bilirubin 0.2 AST 12 L ALT 15 Alkaline Phosphatase 77 Total Protein 6.6 Albumin 3.0 L Amylase 61 Urine Color Yellow Urine Clarity Clear Urine pH 7.0 Ur Specific Bayard 1.015 Urine Protein Negative Urine Ketones Negative Urine Blood Moderate H Urine Nitrite Negative Urine Bilirubin Negative Urine Urobilinogen 0.2 Ur Leukocyte Esterase Negative Urine RBC 10-20 H Urine WBC 0-2 Ur Epithelial Cells Rare Urine Crystals Moderate Amorphous Urine Bacteria Few Urine Casts Negative Urine Mucus Negative Ur Culture Indicated? No Urine Glucose 250 H 06/13/24 18:30 Urine - Clean Catch Urine Culture - Pending Preliminary micro results at discharge 06/13/24 18:30 Urine Culture - Pending Urine - Clean Catch
== END 2024-06-13 20:48 | disposition home or self-care (01) ==
LOC: OBS 20:45 → BCD 06-16 08:59
PROVIDERS: Admitting Provider Advanced Practice Midwife; Visit Provider Advanced Practice Midwife
DX: O26.892 Other specified pregnancy related conditions, second trimester (principal); N20.0 Calculus of kidney; Z87.448 Personal history of other diseases of urinary system; Z3A.27 27 weeks gestation of pregnancy; O99.612 Diseases of the digestive system complicating pregnancy, second trimester; Z67.91 Unspecified blood type, Rh negative; K21.9 Gastro-esophageal reflux disease without esophagitis
CPT/HCPCS: 59025; 36415; 80053; 96360; 96361; 96374; 96375; 81003; 81015; 82150; 84550; 85025; 87086; J1171; J2405

== ENCOUNTER 2024-06-25 02:19 | Outpatient (CLI) | payer MEDICAID, SELFPAY ==
[2024-06-25 12:44] LABS: HGB 11.4 g/dL (11.2-15.7); MCH 29.8 pg (27.0-33.0); MCHC 32.6 % (32.0-36.0); MCV 91 fL (80-95); MPV 9.9 fL (8.0-11.0); Platelet Count 192 10^3/uL (130-400); RBC 3.83 10^6/uL (3.93-5.22); RDW 13.3 % (11.7-14.6); RDW-SD 44.6 fL; WBC 8.54 10^3/uL (4.4-10.8)
[2024-06-25 12:49] LABS: Glucose,1 Hr (Glucola) 109 mg/dL (80-140)
== END 2024-06-25 02:20 | disposition home or self-care (01) ==
LOC: LBO 02:19
PROVIDERS: Visit Provider Advanced Practice Midwife
DX: O26.892 Other specified pregnancy related conditions, second trimester; Z67.91 Unspecified blood type, Rh negative; Z34.92 Encounter for supervision of normal pregnancy, unspecified, second trimester
CPT/HCPCS: 36415; 82950; 85027; 86850; 90384

== ENCOUNTER 2024-06-25 13:31 | Outpatient (CLI) | payer MEDICAID, SELFPAY ==
--- NOTE | 2024-06-25 16:31 | PDOC.NST_ITS ---
Date of service: 06/25/24 Time of Service: 16:31 NST Evaluation Reason for NST Reasons for Nonstress Test: OTHER, SEE COMMENT Reason for NST Other: Assessing heart rhythm Gestational Age Gestational Age in Weeks and Days: 29 Weeks and 0Days Test and Monitor Explained Test/Monitor Explained: Test Explained, Monitor Explained and Patient Verbalized Understanding NST Information Date on Monitor: 06/25/24 Time on Monitor: 13:42 Date off Monitor: 06/25/24 Time off Monitor: 14:05 Total Time on Monitor: 23 NST Interventions: None NST Evaluation Patient States Movement: Present FHR Baseline: 135 Variability: Moderate 6-25 bpm Accelerations: 15x15 Decelerations: None NST Results: Reactive Note Ultrasound Done: N/A. NST Note Note: Laurenbabars seen at the [facility] office today. Skipped beats heard with doppler. Lauren reports that she heard this on the monitor previously when she was admi tted with kidney stone and she was concerned about it but she forgot to report it at the time. One skipped beat heard by RN. reactive NST. Will call Lauren today after her chiropractor appt. to [place] [facility] if [place] desires. NST Reviewed and Verified by: Sarah Abarca
== END 2024-06-25 14:11 | disposition home or self-care (01) ==
LOC: BCD 13:32 → OBS 13:36
PROVIDERS: Visit Provider Internal Medicine Cardiovascular Disease
DX: O36.8331 Maternal care for abnormalities of the fetal heart rate or rhythm, third trimester, fetus 1 (principal); Z3A.29 29 weeks gestation of pregnancy
CPT/HCPCS: 59025

== ENCOUNTER 2024-08-13 15:18 | Outpatient (CLI) | payer MEDICAID, SELFPAY ==
[2024-08-13 15:51] VITALS: BP 107/63; PULSE 86; RESP 20; TEMP 36.7
[2024-08-13] MEDS: IRON SUCROSE COMPLEX 200 MG in Normal Saline 100 ML 400 MG IVPB (15:55)
[2024-08-13 16:07] VITALS: BP 107/63; PULSE 86; TEMP 36.7
== END 2024-08-13 16:25 ==
LOC: BCD 15:19 → OBS 15:48
PROVIDERS: Visit Provider Advanced Practice Midwife
DX: O99.891 Other specified diseases and conditions complicating pregnancy (principal); R10.0 Acute abdomen; Z3A.27 27 weeks gestation of pregnancy
CPT/HCPCS: 96365; 59025; J1756

== ENCOUNTER 2024-08-13 15:20 | Outpatient (REF) | payer MEDICAID, SELFPAY | END 2024-08-13 15:21 | disposition home or self-care (01) | LOC: LBN 15:20 | PROVIDERS: Visit Provider Advanced Practice Midwife | DX: Z34.93 Encounter for supervision of normal pregnancy, unspecified, third trimester (principal) | CPT/HCPCS: 87081 ==

== ENCOUNTER 2024-08-15 00:40 | Outpatient (CLI) | payer MEDICAID, SELFPAY ==
--- NOTE | 2024-08-15 07:30 | DI.US_ITS ---
Exam(s) US OB JIMMY WEIGHT EXAM: US OB JIMMY WEIGHT CLINICAL HISTORY: S<D at 36 wks,O26.843,size discrepancy. TECHNIQUE: Transabdominal obstetrical ultrasound was performed. COMPARISON: US US OB 2-3 TRIMESTER from 04/30/2024 FINDINGS: There is a single viable intrauterine gestation with cardiac activity identified-157 bpm The fetus is presently in breech position . Amniotic fluid: There is a normal amount of amniotic fluid with an JIMMY of 15.7cm. Placental location: The placenta is posterior grade 2,with no evidence of placenta previa. Dating parameters place this at approximately 35 weeks and 6 days gestational age, implying CASA of September 13, 2024. BPD measures 35 weeks and 6 days HC measures 37 weeks and 0 days AC measures 34 weeks and 5 days FL measures 35 weeks and 4 days Estimated weight is 2638 gm-5 pounds, 13 ounces Fetus is at the 26th percentile on the Hadlock scale. IMPRESSION:: Viable 3rd trimester gestation, as described above. DATA REPOSITORY:
== END 2024-08-15 01:00 ==
PROVIDERS: PCP Nurse Practitioner Adult Health; Visit Provider Advanced Practice Midwife
DX: O26.843 Uterine size-date discrepancy, third trimester (principal); Z3A.37 37 weeks gestation of pregnancy
CPT/HCPCS: 76816

== ENCOUNTER 2024-09-02 16:43 | Inpatient (IN) | payer MEDICAID, SELFPAY ==
[2024-09-02] VITALS (8 sets, daily range): BP systolic 107–139; BP diastolic 63–80; PULSE 88–104; RESP 18; TEMP 36.4–36.7; O2SAT 97
--- NOTE | 2024-09-02 16:31 | W.PM.OBHPL1 ---
Date of service: 09/02/24 Time of Service: 16:31 Assessment and Plan Assessment and plan (1) Spontaneous onset of labor: Status: Acute Assessment and plan: Admit to Center and routine admission labs. Comfort measures. Discussed labor augmentation or AROM if indicated and Will observe x 2 hours and reassess. Tylenol provided PRN for a headache. Anticipate . OB-HPI Labor/Delivery History of Present Illness Reason for Visit: NST Chief Complaint: Uterine Contractions. CASA Calculator Estimated Delivery Date Method Current WG Current Estimate 09/10/24 Ultrasound #1 38w 6d Other Estimates 09/03/24 LMP (Certain) 39w 6d Comments: Lauren has been having irregular contractions x 24 hours and they are now regular and stronger. She denies ROM. History of Present Expected Delivery Route/Plan - CNM FOB/ - [place] (4th child together) BG GBS negative Specific Issues/Plan 1. Tandem Nursing. 2. hx GDM, early GTT 121, 1-hr GTT at 28 weeks - 109 3. Genetic testing options , cfDNA low risk female, declines CF/SMA/AFP 4. Rh neg, rhogam at 28 weeks, given 06/25/24 5. Kidney stone, passed at 27 weeks 6. arrhythmia - referral to [facility] [place] at 29 weeks, consult Sunday then ECHO 07/30 6a. Pt plans to cancel echo as irregular FHT has not been heard since it was first heard 06/25 7. Anemia at 36 wks, iron infusions weekly until hgb>11 or delivery 8. At 36 wks: EFW in 26th percentile, JIMMY 15, breech presentation 8a. Appt with Dr. Leung 08/19 @ 4880 to discuss and schedule ECV- breech 8b. vertex at 37 weeks visit. Will check at each visit. IOL recommended at 39 weeks, scheduled for 09/03____ PFSH All Active Problems (Updated 09/02/24 @ 16:34 by Sarah Abarca CNM) Spontaneous onset of labor (Acute) Breech presentation (Acute) Anemia affecting (Acute) Rh negative state in antepartum period (Acute) (Acute) Fatigue (Acute) Lactating mother (Acute) Sciatica (Chronic) Headache (Chronic) Medical History (Updated 09/02/24 @ 16:34 by Sarah Abarca CNM) Size of fetus inconsistent with dates in third trimester History of gestational diabetes Kidney stone on left side cardiac arrhythmia Acute left flank pain Hx of hydronephrosis 27 weeks gestation of Mastitis Flank pain History of kidney stones Size of fetus inconsistent with dates in third trimester Left flank pain Low lying placenta nos or without hemorrhage, second trimester Keloid scar of skin Hemorrhoid Acid reflux Carpal tunnel syndrome of right wrist relieved with surgery Skin lesion Dry skin Tenosynovitis of wrist (08/18/15) Right carpal tunnel syndrome (08/18/15) surgery 2016 Surgical History Hx of carpal tunnel repair H/O wisdom tooth extraction Family History (Updated 07/09/24 @ 10:24 by Josselyn Pitts LPN) Father Diabetes Type 1 Asthma Heart disease Brother Anxiety Asthma ADHD Paternal Uncle Bipolar disorder Autism Asthma Daughter Far-sighted Paternal Cousin Bipolar disorder Paternal Grandmother Pancreatic cancer Paternal Aunt Pancreatic cancer Social History Smoking/Tobacco Use Status: Never Smoking risk assessment performed?: Yes Alcohol Intake: never Drug use: Never Substance use type: does not use Household members: spouse and children Housing: house Number of Children: 2 current occupation: Stay at home mom Sexually active: Yes Do you think of yourself as: straight/heterosexual Current gender identity: female Do you feel safe at home: Yes Do you feel safe in your relationship?: Yes Female Reproductive History Menstrual Age of Menarche: 14 control method: none History History 4 Para 3 Hx # Term Pregnancies 3 Multiple births 0 Hx # Pregnancies 0 Ectopic pregnancies 0 AB induced 0 Hx Number of Living Children 3 AB spontaneous 0 Past Pregnancies Del. Date GA/Weeks # Preg Succ Route Wgt Sex Labor Lgth Anesthesia Location Prov Complic 07/12/18 38 No vaginal 6 lb 12 oz Female 6 hrs Jean-Pierre Capps CNM 07/29/20 39 No vaginal 6 lb 10 oz Male 9 h 17m Adelaida Sampson CNM 09/07/22 39 No Yes vaginal 7 lb 9.2 oz Female 26 hrs regional [facility] Delivery Date: 07/12/18 Last Updated by: Sarah Abarca CNM Stage 3 7 min.; 2nd degree perineal laceration repaired. Nilsa. positive GBS Delivery Date: 07/29/20 Last Updated by: Sarah Sampson CNM Kuldip morales Delivery Date: 09/07/22 Last Updated by: Sarah Abarca CNM Radha Mcrae Pitocin augmentation at 6 cms. Rapid second stage. Meds Allergies and Home Medications Allergies Allergy/AdvReac Type Severity Reaction Status Date / Time Bleach (Sodium Hypochlorite) Allergy Runny nose Verified 08/27/24 14:15 Home Medications ?Medication ?Instructions ?Recorded ?Confirmed ?Type multivitamin 1 tab PO DAILY 07/29/18 08/13/24 History acetaminophen 500 mg capsule 1,000 mg PO PRN PRN 02/28/22 08/13/24 History cholecalciferol (vitamin D3) 50 50 mcg PO DAILY #60 caps 06/27/23 08/13/24 Rx mcg (2,000 unit) capsule folic acid 0.8 mg capsule 0.8 mg PO DAILY #60 caps 06/27/23 08/13/24 Rx famotidine 20 mg tablet 20 mg PO PRN 08/06/24 08/13/24 History Exam Physical Exam Vital signs: Pulse BP 104 H 112/77 09/02/24 16:11 09/02/24 16:11 Vital Signs Reviewed: Yes Constitutional Constitutional: no acute distress Detailed Labor and Delivery Exam Dilation: 2 Effacement (%): 60 station: -2 Cervix position: posterior Consistency: soft Law Score: Cervical Points Exam 0 1 2 3 Dilation Closed 1-2cm 3-4 cm 5-6cm Effacement 0-30% 40-50% 60-70% 80% Consistency Firm Medium Soft Station -3 -2 -1,0 +1,+2 Position Posterior Mid Anterior Amniotic Membrane Status: Intact Monitor Mode: External Contraction Frequency(min): every 6-8 Contraction Duration(sec): 60 Contraction Intensity: Moderate Fetus A Heart Rate Baseline: 130 Monitor Accelerations: 15 X 15 Monitor Decelerations: None Variability: Moderate (6-25 BPM) Presentation: Cephalic Categories: Category I HEENT Exam HEENT Exam: Normal Respiratory Exam Respiratory Exam: Normal Cardiovascular Exam Cardiovascular Exam: Normal Abdominal Exam Abdominal Exam: Normal Exam Exam: Normal Back/Spine/Pelvis Exam Back Exam: Normal Skin Exam Skin Exam: Normal Psychiatric Exam Psychiatric Exam: Normal Risk Assessment Risk for Shoulder Dystocia Historical/Initial OB: NEGATIVE FOR: Pelvic Abnormality, Pre- BMI>30, Previous Shoulder Dystocia or Previous Macrosomia 36 Weeks: NEGATIVE FOR: Current Gestational DM, EFW>4500gms or Maternal Weight Gain>40lbs 40 Weeks: NEGATIVE FOR: EFW> 4500 gms, Maternal Weight Gain >40lb or Post Dates Risk for Pre-Eclampsia Yes, if one or more: NEGATIVE FOR: Hx Pre-E/Gest HTN, Chronic HTN, Multiple Gestation, Pre-gestational DM, Renal Disease, Systemic Lupus or APA Syndrome Yes, if 2 or more: NEGATIVE FOR: Nulliparity, Age>= 35 yrs, >10yr btwn pregnancies, BMI>30, ethinicty, Mother/Sister w/ Pre-E or Previous IUGR Risk for Post- Hemorrhage Initial: NEGATIVE FOR: Multiple Gestation, Previous PPH, Known Clotting Deficiency, Grand Multiparity or Anticoagulation 36 Weeks: NEGATIVE FOR: Anemia, hgb<10, Low platelets(thrombocytopenia), Gestational HTN or Pre-E, Polyhydraminios or EFW>4500gms 40 Weeks: NEGATIVE FOR: Anemia, hgb<10, Low platelets (thrombocytopenia), Gestation HTN or Pre-E, Polyhydraminios or EFW>4500gms At Risk?: No Counseled re: Active Management: Yes Date/Initials: 09/06/22 [facility] Risks Reviewed Risks Reviewed Upon Admission: Yes
[2024-09-02] MEDS: Acetaminophen 500 MG TAB 1000 MG PO (16:51)
[2024-09-02 17:00] LABS: HGB 11.7 g/dL (11.2-15.7); MCH 29.4 pg (27.0-33.0); MCHC 33.4 % (32.0-36.0); MCV 88 fL (80-95); MPV 11.2 fL (8.0-11.0); Platelet Count 156 10^3/uL (130-400); RBC 3.98 10^6/uL (3.93-5.22); RDW 14.2 % (11.7-14.6); RDW-SD 45.1 fL; WBC 9.61 10^3/uL (4.4-10.8)
--- NOTE | 2024-09-02 21:03 | W.PM.OBNL1 ---
Date of service: 09/02/24 Time of Service: 21:04 Informed Consent Informed Consent: Augmentation of Labor Pelvic Exam Dilation: 4 Effacement (%): 80 station: -2 Cervix Position: posterior Consistency: soft Vaginal Exam Presentation: Cephalic Contractions Monitor Mode: External Contraction Frequency(min): every 10 Contraction Duration(sec): 60 Intensity: Moderate Fetus A Monitor: External (US) Heart Rate Baseline: 130 Presentation: Cephalic Variability: Moderate (6-25 BPM) Categories: Category I FHR Rhythm: Regular Accelerations: 15 X 15 Decelerations: None Amniotic Membrane Status: Intact Assessment and Plan Assessment and plan (1) Headache: Status: Chronic Assessment and plan: rest with ice packs encouraged. Will start pitocin augmentation. nubain 5 mg IM provided for rest and relief of headache. (2) Spontaneous onset of labor: Status: Acute Assessment and plan: Consider AROM when appropriate. Anticipate . Objective Abnormal lab results 09/02/24 Range/Units 16:50 Hct 35.0 L (36.0-46.0) % MPV 11.2 H (8.0-11.0) fL Temp Pulse Resp BP Pulse Ox 97.5 F L 99 H 18 107/72 97 09/02/24 17:31 09/02/24 17:31 09/02/24 17:31 09/02/24 17:31 09/02/24 17:31 Laboratory Results WBC 9.61 10^3/uL (4.4-10.8) 09/02/24 16:50 RBC 3.98 10^6/uL (3.93-5.22) 09/02/24 16:50 Hgb 11.7 g/dL (11.2-15.7) 09/02/24 16:50 Hct 35.0 % (36.0-46.0) L 09/02/24 16:50 MCV 88 fL (80-95) 09/02/24 16:50 MCH 29.4 pg (27.0-33.0) 09/02/24 16:50 MCHC 33.4 % (32.0-36.0) 09/02/24 16:50 RDW 14.2 % (11.7-14.6) 09/02/24 16:50 Plt Count 156 10^3/uL (130-400) 09/02/24 16:50 MPV 11.2 fL (8.0-11.0) H 09/02/24 16:50 ABO/Rh O Negative 09/02/24 16:50 Antibody Screen POSITIVE 09/02/24 16:50 Subjective Patient Reports: New Complaints Interval history since last seen: Lauren had a headache upon arrival. She was given tylenol 1000 mg PO and the headache has worsened. The headache is on the right occipital area radiating to right forehead. She reports that contractions are less strong now. Results Hemoglobin/Hematocrit: Hgb 11.7 g/dL (11.2-15.7) 09/02/24 16:50 Hct 35.0 % (36.0-46.0) L 09/02/24 16:50 Abnormal Lab Findings: Abnormal Labs 09/02/24 16:50 Hct 35.0 L MPV 11.2 H
[2024-09-02 21:26] LABS: ALT 17 U/L (14-59); AST 13 U/L (15-37); Alkaline Phosphatase 169 U/L (46-116); Anion Gap 11.8 mmol/L (3-11); BUN 9 mg/dL (7-18); Bilirubin, Total 0.2 mg/dL (0.2-1.0); CO2 22.2 mmol/L (21.0-32.0); CREATININE 0.6 mg/dL (0.55-1.02); Calcium 9.6 mg/dL (8.5-10.1); Chloride 103 mmol/L (98-107); Estimated GFR 122.99 (mL/min/1.73m2); Glucose 107 mg/dL (74-106); Potassium 3.9 mmol/L (3.5-5.1); Sodium 137 mmol/L (136-145); Total Protein 6.9 g/dL (6.4-8.2)
[2024-09-02] MEDS: Oxytocin/Normal Saline 30 UNIT/500 ML BAG 2 UNITS IV (21:43)
[2024-09-02] MEDS: Lactated Ringers 1,000 ML 125 ML IV (21:43)
[2024-09-02] MEDS: Normal Saline Flush 10 ML SYR IVP (21:44)
[2024-09-03] VITALS (7 sets, daily range): BP systolic 87–122; BP diastolic 52–79; PULSE 60–93; RESP 12–16; TEMP 36.8–37.1; O2SAT 98
[2024-09-03] MEDS: Dibucaine 1% 28 GM TUBE TP ×2 (00:25→14:34)
[2024-09-03] MEDS: Acetaminophen 325 MG TAB 650 MG PO ×5 (00:25→21:06)
[2024-09-03] MEDS: Hamamelis Leaf/Glycerin 100 EACH BOX PR (00:26)
[2024-09-03] MEDS: Ibuprofen 600 MG TAB PO ×3 (00:26→14:28)
[2024-09-03] MEDS: Docusate Sodium 100 MG CAP PO ×2 (08:02→21:06)
--- NOTE | 2024-09-03 09:33 | OBVDS_ITS ---
Date of service: 09/03/24 Time of Service: 02:00 OB Labor/ Delivery Information Baby A Delivery Delivery Method: Spontaneaous Presentation: Cephalic Vertex Position: Right Occipital Anterior Cord Description-Baby A: 3 Vessels Amniotic Fluid: Clear Estimated Blood Loss: 250 Delivery Outcome: Liveborn Transferred: Remains with Mother Note: AROM performed at 5-6 cms and -1 station. FHTs 130s during first stage of labor. She progressed rapidly to full dilation and began pushing on her hands and knees. FHTs 130s in second stage with occasional variable decelerations. Second stage huddle was done. Spontaneous delivery of female infant delivered in BRADLEY position. Baby was placed on mother's abdomen and dried and stimulated. Spontaneous cry. Cord was clamped and cut by the baby's father. The placenta delivered spontaneously and appears to by intact with a three vessel cord. Pitocin 30 units IV was administered before delivery of the placenta. The perineum was inspected and a small 2nd degree laceration was repaired . The baby did breastfeed. After delivery, Mother and baby and father of the baby were stable and bonding well in the delivery room and there were no complications. Providers Nurse Pollution Control Technician: Sarah Abarca Nurse: Praveena Maddox Nurse: Smitha Monroe Labor/Delivery Information Number of Babies in Womb: 1 Steroids Given: None Reason Steroids Not Administered: N/A Group Beta Strep: N/A Antibiotics Administered: No Rubella Status: Immune Blood Type: O- Varicella Immunity: Immune Medication in Delivery: nitrous Born En Route: No Maternal Complications: None Shoulder Dystocia: No Stages of Labor Onset of Labor Date: 09/02/24 Onset of Labor Time: 14:00 Complete Dilatation Date: 09/02/24 Complete Dilatation Time: 23:29 Labor - Stage 1 Duration: 9 hours and 29 minutes ROM Baby A: 09/02/24 ROM Baby A: 23:10 ROM Total Time- Baby A: [id number] Delivery Date-Baby A: 09/02/24 Infant Delivery Time-Baby A: 23:34 Labor Stage 2 Duration: 5 minutes Placenta Delivery Date-Baby A: 09/02/24 Placenta Delivery Time-Baby A: 23:40 Labor-Stage 3 Duration: 6 minutes Total Length of Labor-Baby A: 9 hours and 34 minutes Placenta Cultured: No Placenta Status: Delivered Baby A Infant Gender: Female Gestational Status: Term (39-41.6 wks) Gestational Age in Weeks/Days: 38 Weeks and 6 Days weight: 6 lb 7.882 oz Length-Baby A: 20.87 in Head Circumference-Baby A: 12.2 in Score-1 Minute Interval(Baby A) Heart Rate-1 minute: 100 BPM or Greater Respiratory Effort- 1 minute: Spontaneous/Strong Cry Muscle Tone-1 minute: Active Movement Reflex Response-1 minute: Prompt Response Color-1 minute: Bluish Hands or Feet Total Score-1 minute: 9 Score-5 Minute Interval(Baby A) Heart Rate- 5 minute: 100 BPM or Greater Respiratory Effort-5 minute: Spontaneous/Strong Cry Muscle Tone-5 minute: Active Movement Reflex Response-5 minute: Prompt Response Color-5 minute: Bluish Hands or Feet Total Score- 5 minute: 9 Interventions Repair of Laceration Type: Perineal, Laceration Extension: Second Degree. Sponge Count Correct: No Sponges Placed in Vagina, Sharp Count Correct: Yes. Laceration Repair Note: repair with 3-0 vicryl suture under local anesthetic. Lauren tolerated procedure well.
[2024-09-03] MEDS: RHO(D) Immune Globulin 1,500 UNIT Syringe 1500 UNIT IM (12:27)
--- NOTE | 2024-09-03 14:15 | W.PM.OBPNV1 ---
Date of service: 09/03/24 Time of Service: 14:15 Assessment and Plan Assessment and plan (1) Term of female : Status: Acute Assessment and plan: Caring for baby independently. Pain is managed well with oral analgesics. Voiding without difficulty. well. pain due to uterine cramping A - stable mother and baby , Post day 1 P - Discharge to home tomorrow. Routine post instructions. [facility] Subjective Subjective Patient comments: no Pain well controlled (Lauren is experiencing strong after-pains) Patient's Mood: good Brilliant baby status: Doing well feeding status: Exclusively breast feeding Exam Physical Exam Vital signs: Temp Pulse Resp BP Pulse Ox 98.2 F 76 12 112/78 97 09/03/24 08:00 09/03/24 08:00 09/03/24 08:00 09/03/24 08:00 09/02/24 17:31 Vital Signs Reviewed: Yes Constitutional Constitutional: no acute distress Respiratory Exam Respiratory Exam: Normal Cardiovascular Exam Cardiovascular Exam: Normal Fundal Exam Fundus: Below Umbilicus and Firm Extremities Exam Extremity Exam: Normal Skin Exam Skin Exam: Normal Psychiatric Exam Psychiatric Exam: Normal Results Hemoglobin/Hematocrit: Hgb 11.7 g/dL (11.2-15.7) 09/02/24 16:50 Hct 35.0 % (36.0-46.0) L 09/02/24 16:50 Abnormal Lab Findings: Abnormal Labs 09/02/24 09/02/24 16:50 21:04 Hct 35.0 L MPV 11.2 H Anion Gap 11.8 H Glucose 107 H AST 13 L Alkaline Phosphatase 169 H Albumin 3.0 L
[2024-09-03] MEDS: Ibuprofen 400 MG TAB PO ×2 (18:25→22:32)
[2024-09-04] MEDS: Acetaminophen 325 MG TAB 650 MG PO ×2 (02:08→08:03)
[2024-09-04] MEDS: Ibuprofen 400 MG TAB PO ×2 (02:09→08:13)
[2024-09-04 08:00] VITALS: BP 109/82; PULSE 79; RESP 12; TEMP 37
--- NOTE | 2024-09-04 08:33 | OBPPV_ITS ---
Date of service: 09/04/24 Time of Service: 08:33 Assessment and Plan Assessment and plan (1) Term of female : Status: Acute Assessment and plan: A: PPD#1, nml recovery well, satisfied with experience P: Pt desires discharge to home today Received RhoGam yesterday Written instructions reviewed and given to pt F/up at 2 & 6 wks Condoms are planned for contraception Subjective Subjective Patient comments: No complaints, Pain well controlled, Tolerating diet, Flatus present and Bowel Movement Patient's Mood: happy [place] baby status: Doing well, Nursing well, Rooming in and Strong Bonding Obs erved [place] feeding status: Exclusively breast feeding Exam Physical Exam Vital signs: Temp Pulse Resp BP Pulse Ox 98.8 F 86 16 102/71 98 09/03/24 20:00 09/03/24 20:00 09/03/24 20:00 09/03/24 20:00 09/03/24 20:00 Vital Signs Reviewed: Yes Constitutional Constitutional: no acute distress, average body habitus and cooperative HEENT Exam HEENT Exam: Normal Neck Exam Neck Exam: Normal Breast Exam Bilateral: Breast Exam: Normal and Soft Nipple Exam: Normal and Uninjured Respiratory Exam Respiratory Exam: Normal Cardiovascular Exam Cardiovascular Exam: Normal Abdominal Exam Abdomen: Other (soft, nontender) Fundal Exam Fundus: Below Umbilicus and Firm Rectal Exam Rectal Exam: Not Done Exam Perineum: Repair Intact Extremities Exam Extremity Exam: Normal, Full ROM and Warm to Touch Back/Spine/Pelvis Exam Back Exam: Normal Skin Exam Skin Exam: Normal Neurological Exam Neurological Exam: Normal Psychiatric Exam Psychiatric Exam: Normal
--- NOTE | 2024-09-04 08:38 | W.PM.OBDISCH ---
Date of service: 09/04/24 Time of Service: 08:38 DS: Diagnosis Discharge Diagnosis (1) Term of female : Status: Acute Discharge Plan Disposition Patient Disposition: Home Condition: Good Discharge Details Reason For Visit: Labor Admit Date/Time: 09/02/24 16:43 Admit Provider: Sarah Abarca Attending Provider: Sarah Abarca Primary Care Provider: Christine Dominguez Hospital Course Hospital Course: Delivered on HD#2, , dnml course, pt requests discharge on PPD#1 Home Meds and New Rx's Prescriptions: No Action multivitamin tablet 1 tab PO DAILY folic acid 0.8 mg capsule 0.8 mg PO DAILY Qty: 60 4RF cholecalciferol (vitamin D3) 50 mcg (2,000 unit) capsule 50 mcg PO DAILY Qty: 60 5RF famotidine 20 mg tablet 20 mg PO PRN acetaminophen 500 mg Capsule 1,000 mg PO PRN PRN Discharge Instructions Additional Instructions: Please keep your 2 and 6 wk appointments with the midwives, call for any and all concerns. Stand Alone Forms: BC Instructions, BC Post Vaginal Deliver Activity:: Activity as Tolerated Equipment/Supplies:: No Equipment Needed Diet:: Normal Diet OB:DS Summary Summary Vaginal Delivery Method: Spontaneaous Episiotomy Description: None Laceration Description: Perineal Laceration Extension: Second Degree Contraception Discussed Contraception Discussed: Yes Contraceptive Plan: Foam/Condoms, Gender-Baby A: Female weight: 6 lb 7.882 oz Status at Discharge Functional status at discharge: independent ambulation Overall status at discharge: patient is progressing back to baseline Mental Status: mental status grossly normal Speech and Movement: speech and movement normal Mood: congruent mood Affect: normal affect Exam Physical Exam Vital signs: Temp Pulse Resp BP Pulse Ox 98.8 F 86 16 102/71 98 09/03/24 20:00 09/03/24 20:00 09/03/24 20:00 09/03/24 20:00 09/03/24 20:00 Constitutional Constitutional: no acute distress, average body habitus and cooperative HEENT Exam HEENT Exam: Normal Neck Exam Neck Exam: Normal Breast Exam Bilateral: Breast Exam: Normal and Soft Respiratory Exam Respiratory Exam: Normal Cardiovascular Exam Cardiovascular Exam: Normal Abdominal Exam Abdomen: Other (soft, nontender) Fundal Exam Fundus: Below Umbilicus and Firm Rectal Exam Rectal Exam: Not Done Exam Perineum: Repair Intact Extremities Exam Extremity Exam: Normal, Full ROM and Warm to Touch Back/Spine/Pelvis Exam Back Exam: Normal Skin Exam Skin Exam: Normal Neurological Exam Neurological Exam: Normal Psychiatric Exam Psychiatric Exam: Normal PFSH All Active Problems (Updated 09/03/24 @ 14:19 by Sarah Abarca CNM) Term of female (Acute) Rh negative state in antepartum period (Acute) Fatigue (Acute) Lactating mother (Acute) Sciatica (Chronic) Headache (Chronic) Medical History (Updated 09/03/24 @ 14:19 by Sarah Abarca CNM) History of gestational diabetes Kidney stone on left side Hx of hydronephrosis History of kidney stones Low lying placenta nos or without hemorrhage, second trimester Keloid scar of skin Hemorrhoid Acid reflux Carpal tunnel syndrome of right wrist relieved with surgery Skin lesion Dry skin Tenosynovitis of wrist (08/18/15) Right carpal tunnel syndrome (08/18/15) surgery 2016 Surgical History Hx of carpal tunnel repair H/O wisdom tooth extraction Family History (Updated 07/09/24 @ 10:24 by Josselyn Pitts LPN) Father Diabetes Type 1 Asthma Heart disease Brother Anxiety Asthma ADHD Paternal Uncle Bipolar disorder Autism Asthma Daughter Far-sighted Paternal Cousin Bipolar disorder Paternal Grandmother Pancreatic cancer Paternal Aunt Pancreatic cancer Social History Smoking/Tobacco Use Status: Never Smoking risk assessment performed?: Yes Alcohol Intake: never Drug use: Never Substance use type: does not use Household members: spouse and children Housing: house Number of Children: 2 current occupation: Stay at home mom Sexually active: Yes Do you think of yourself as: straight/heterosexual Current gender identity: female Do you feel safe at home: Yes Do you feel safe in your relationship?: Yes Female Reproductive History Menstrual Age of Menarche: 14 control method: none History History 4 Para 3 Hx # Term Pregnancies 3 Multiple births 0 Hx # Pregnancies 0 Ectopic pregnancies 0 AB induced 0 Hx Number of Living Children 3 AB spontaneous 0 Past Pregnancies Del. Date GA/Weeks # Preg Succ Route Wgt Sex Labor Lgth Anesthesia Location Prov Complic 07/12/18 38 No vaginal 6 lb 12 oz Female 6 hrs Jean-Pierre Capps CNM 07/29/20 39 No vaginal 6 lb 10 oz Male 9 h 17m Adelaida Sampson CNM 09/07/22 39 No Yes vaginal 7 lb 9.2 oz Female 26 hrs regional [facility] Delivery Date: 07/12/18 Last Updated by: Sarah Abarca CNM Stage 3 7 min.; 2nd degree perineal laceration repaired. Nilsa. positive GBS Delivery Date: 07/29/20 Last Updated by: Sarah Sampson CNM [facility] Delivery Date: 09/07/22 Last Updated by: NISH Burton Clementina Pitocin augmentation at 6 cms. Rapid second stage. DS: Data Vitals/I&O Vitals and I&O: Vital Signs Temperature 98.8 F 09/03/24 20:00 Temperature 98.1 F 09/02/24 15:51 Temperature Source Forehead 09/03/24 20:00 Pulse 86 09/03/24 20:00 Pulse 104 09/02/24 15:51 Pulse Rhythm Regular 09/03/24 17:00 Respiratory Rate 16 09/03/24 20:00 Blood Pressure 102/71 09/03/24 20:00 Blood Pressure 112/77 09/02/24 15:51 Blood Pressure Mean 81 09/03/24 20:00 Pulse Oximetry 98 09/03/24 20:00 Pain Level 7 09/04/24 08:13 Intake & Output 09/03/24 09/03/24 09/04/24 11:59 23:59 11:59 Output Total 500 / 500 Balance -500 / -500 Output: Urine 500 / 500 Other: Urine Color Yellow Urine Appearance Clear Urine Odor None Data Completed and Pending Labs on day of discharge: Labs from last 24 hours 09/03/24 09/02/24 06:32 16:50 ABO/Rh O Negative Antibody Screen POSITIVE Antibody Identification Anti-D Screen Negative Rhogam Unit Number [id number] Unit Expiration Date 09/22/2026 Product Lot # [id number]
--- NOTE | 2024-09-04 09:23 | DSE_ITS ---
Date of service: 09/04/24 Time of Service: 09:23 DS: Diagnosis Discharge Diagnosis (1) Term of female : Status: Acute Asessment and Plan: Caring for baby independently. Pain is managed well with oral analgesics. Voiding without difficulty. well. A - stable mother and baby, Post day 2 P - Discharge to home today. Routine post instructions. [facility] Discharge Plan Disposition Patient Disposition: Home Condition: Good Discharge Details Reason For Visit: Labor Admit Date/Time: 09/02/24 16:43 Admit Provider: Sarah Abarca Attending Provider: Sarah Abarca Primary Care Provider: Christine Dominguez Hospital Course Hospital Course: Delivered on HD#2, , dnml course, pt requests discharge on PPD#1 Home Meds and New Rx's Prescriptions: No Action multivitamin tablet 1 tab PO DAILY folic acid 0.8 mg capsule 0.8 mg PO DAILY Qty: 60 4RF cholecalciferol (vitamin D3) 50 mcg (2,000 unit) capsule 50 mcg PO DAILY Qty: 60 5RF famotidine 20 mg tablet 20 mg PO PRN acetaminophen 500 mg Capsule 1,000 mg PO PRN PRN Discharge Instructions Additional Instructions: Please keep your 2 and 6 wk appointments with the midwives, call for any and all concerns. Stand Alone Forms: BC Instructions, BC Post Vaginal Deliver Activity:: Activity as Tolerated Equipment/Supplies:: No Equipment Needed Diet:: Normal Diet Discharge Orders Discharge Orders: Discharge Order (Routine); Ordered 09/04/24 Ordered By: Anayeli Spence OB:DS Summary Summary Vaginal Delivery Method: Spontaneaous Episiotomy Description: None Laceration Description: Perineal Laceration Extension: Second Degree Contraception Discussed Contraception Discussed: Yes, Gender-Baby A: Female weight: 6 lb 7.882 oz Status at Discharge Functional status at discharge: independent ambulation Overall status at discharge: patient is back to baseline Mental Status: mental status grossly normal Speech and Movement: speech and movement normal Mood: congruent mood Affect: normal affect Exam Physical Exam Vital signs: Temp Pulse Resp BP Pulse Ox 98.8 F 86 16 102/71 98 09/03/24 20:00 09/03/24 20:00 09/03/24 20:00 09/03/24 20:00 09/03/24 20:00 Vital Signs Reviewed: Yes Constitutional Constitutional: no acute distress HEENT Exam HEENT Exam: Normal Respiratory Exam Respiratory Exam: Normal Cardiovascular Exam Cardiovascular Exam: Normal Fundal Exam Fundus: Below Umbilicus and Firm Extremities Exam Extremity Exam: Normal Skin Exam Skin Exam: Normal Psychiatric Exam Psychiatric Exam: Normal PFSH All Active Problems (Updated 09/03/24 @ 14:19 by Sarah Abarca CNM) Term of female (Acute) Rh negative state in antepartum period (Acute) Fatigue (Acute) Lactating mother (Acute) Sciatica (Chronic) Headache (Chronic) Medical History (Updated 09/03/24 @ 14:19 by Sarah Abarca CNM) History of gestational diabetes Kidney stone on left side Hx of hydronephrosis History of kidney stones Low lying placenta nos or without hemorrhage, second trimester Keloid scar of skin Hemorrhoid Acid reflux Carpal tunnel syndrome of right wrist relieved with surgery Skin lesion Dry skin Tenosynovitis of wrist (08/18/15) Right carpal tunnel syndrome (08/18/15) surgery 2016 Surgical History Hx of carpal tunnel repair H/O wisdom tooth extraction Family History (Updated 07/09/24 @ 10:24 by Josselyn Pitts LPN) Father Diabetes Type 1 Asthma Heart disease Brother Anxiety Asthma ADHD Paternal Uncle Bipolar disorder Autism Asthma Daughter Far-sighted Paternal Cousin Bipolar disorder Paternal Grandmother Pancreatic cancer Paternal Aunt Pancreatic cancer Social History Smoking/Tobacco Use Status: Never Smoking risk assessment performed?: Yes Alcohol Intake: never Drug use: Never Substance use type: does not use Household members: spouse and children Housing: house Number of Children: 2 current occupation: Stay at home mom Sexually active: Yes Do you think of yourself as: straight/heterosexual Current gender identity: female Do you feel safe at home: Yes Do you feel safe in your relationship?: Yes Female Reproductive History Menstrual Age of Menarche: 14 control method: none History History 4 Para 3 Hx # Term Pregnancies 3 Multiple births 0 Hx # Pregnancies 0 Ectopic pregnancies 0 AB induced 0 Hx Number of Living Children 3 AB spontaneous 0 Past Pregnancies Del. Date GA/Weeks # Preg Succ Route Wgt Sex Labor Lgth Anesth esia Location Prov Complic 07/12/18 38 No vaginal 6 lb 12 oz Female 6 hrs Ane renata Capps CNM 07/29/20 39 No vaginal 6 lb 10 oz Male 9 h 17m Terell Sampson CNM 09/07/22 39 No Yes vaginal 7 lb 9.2 oz Female 26 hrs regional [facility] Delivery Date: 07/12/18 Last Updated by: Sarah Abarca CNM Stage 3 7 min.; 2nd degree perineal laceration repaired. Nilsa. positive GBS Delivery Date: 07/29/20 Last Updated by: Sarah Sampson CNM [place] [facility] Delivery Date: 09/07/22 Last Updated by: NISH Burton Clementina Pitocin augmentation at 6 cms. Rapid second stage. DS: Data Vitals/I&O Vitals and I&O: Vital Signs Temperature 98.8 F 09/03/24 20:00 Temperature 98.1 F 09/02/24 15:51 Temperature Source Forehead 09/03/24 20:00 Pulse 86 09/03/24 20:00 Pulse 104 09/02/24 15:51 Pulse Rhythm Regular 09/03/24 17:00 Respiratory Rate 16 09/03/24 20:00 Blood Pressure 102/71 09/03/24 20:00 Blood Pressure 112/77 09/02/24 15:51 Blood Pressure Mean 81 09/03/24 20:00 Pulse Oximetry 98 09/03/24 20:00 Pain Level 7 09/04/24 08:13 Intake & Output 09/03/24 09/03/24 09/04/24 11:59 23:59 11:59 Output Total 500 / 500 Balance -500 / -500 Output: Urine 500 / 500 Other: Urine Color Yellow Urine Appearance Clear Urine Odor None Data Completed and Pending Labs on day of discharge: Labs from last 24 hours 09/03/24 09/02/24 06:32 16:50 ABO/Rh O Negative Antibody Screen POSITIVE Antibody Identification Anti-D Screen Negative Rhogam Unit Number [id number] Unit Expiration Date 09/22/2026 Product Lot # [id number]
== END 2024-09-04 11:40 | disposition home or self-care (01) | DRG 807 ==
LOC: BCD 17:06 → OBS 17:06
PROVIDERS: Admitting Provider Advanced Practice Midwife; PCP Nurse Practitioner Adult Health; Visit Provider Advanced Practice Midwife
DX: O99.02 Anemia complicating childbirth (principal); Z37.0 Single live birth; Z3A.39 39 weeks gestation of pregnancy; D64.9 Anemia, unspecified; O99.62 Diseases of the digestive system complicating childbirth; K21.9 Gastro-esophageal reflux disease without esophagitis; O26.893 Other specified pregnancy related conditions, third trimester; Z67.91 Unspecified blood type, Rh negative; K64.8 Other hemorrhoids; R51.9 Headache, unspecified; O70.1 Second degree perineal laceration during delivery
CPT/HCPCS: 36415; 80053; 85027; 85461; 86850; 86900; 86901; 90384; 59025; 86870; J0595; J2790

== ENCOUNTER 2025-02-23 10:47 | Outpatient (REF) | payer MEDICAID, SELFPAY | END 2025-02-23 10:48 | disposition home or self-care (01) | LOC: LBN 10:47 | PROVIDERS: PCP Nurse Practitioner Adult Health; Visit Provider Advanced Practice Midwife | DX: N94.9 Unspecified condition associated with female genital organs and menstrual cycle (principal); R30.0 Dysuria | CPT/HCPCS: 87086; 87480; 87510; 87660 ==